=== PATIENT | female | born 1990 | race Caucasian/White ===

== ENCOUNTER → 2017-05-22 | Outpatient (CLI) | payer OTHER ==
--- NOTE | 2017-05-22 17:31 | Diagnostic Imaging Report ---
US NON OB PELVIS COMP/TRANSVAG Technique: Transabdominal and transvaginal grayscale, color Doppler and pulse duplex imaging of the pelvis was performed. Indication: Abnormal uterine bleeding. Findings: The uterus measures 6.2 x 4.7 x 3.2 cm. The myometrium is normal in echogenicity without discrete mass. The endometrium measures up to 1.0 cm where visualized, and is normal in echogenicity. The right ovary measures 2.3 x 2.0 x 2.9 cm. The left ovary measures 3.0 x 2.0 x 2.3 cm. Both ovaries are physiologic in appearance. Blood flow is seen in both ovaries on color doppler imaging. No suspicious adnexal mass or fluid collection. No free pelvic fluid. Impression: Normal pelvic ultrasound. Dictated by: Dictated on workstation # [id number]
== END ==
LOC: RAD 16:49
PROVIDERS: ATTEND Obstetrics & Gynecology
DX: N93.9 Abnormal uterine and vaginal bleeding, unspecified (principal)
CPT/HCPCS: 76830; 76856

== ENCOUNTER → 2017-08-03 | Outpatient (CLI) | payer OTHER, MEDICAID ==
--- NOTE | 2017-08-03 17:37 | Diagnostic Imaging Report ---
PROCEDURE: US OB single fetus <14 wks. TECHNIQUE: Multiple real-time grayscale images were obtained over the gravid uterus in various projections. INDICATION: Size and dates. FINDINGS: There is a single living intrauterine . Biometry correlates with a gestational age of 9 weeks 2 days. Heart rate is 167 beats per minute and regular. There is a normal volume of amniotic fluid. Placental location appears to be anterior. Neither ovary was visualized due to bowel gas. There are no adnexal masses. There is no free pelvic fluid. IMPRESSION: Single living intrauterine with a sonographically estimated gestational age of 9 weeks 2 days and estimated date of confinement March 06, 2018. Dictated by: Dictated on workstation # [id number]
== END ==
LOC: RAD 16:51
PROVIDERS: ATTEND Family Medicine
DX: Z34.00 Encounter for supervision of normal first pregnancy, unspecified trimester (principal); Z3A.09 9 weeks gestation of pregnancy
CPT/HCPCS: 76801

== ENCOUNTER → 2017-10-23 | Outpatient (CLI) | payer OTHER, MEDICAID ==
--- NOTE | 2017-10-23 17:59 | Diagnostic Imaging Report ---
INDICATION: survey, patient. TECHNIQUE: Multiple real-time grayscale images were obtained over the gravid uterus. COMPARISON: 08/03/2017. FINDINGS: A single live intrauterine fetus is seen measuring 22 weeks 3 days with sonographic EDC of 02/23/2018. This is about a week and a half larger than expected from original dates. The fetus is in cephalic presentation. The amniotic fluid appears qualitatively normal. Placenta is posterior with no evidence of previa. The heart rate was 167 beats per minute. Cervical length is 4.7 cm. survey showed no detectable abnormalities. kidneys, bladder, stomach, and three-vessel cord were noted. Cord insertion was noted to be normal. The intracranial structures and four-chamber heart view and spine views were suboptimal due to position. Biometrical measurements are as follows: Biparietal 5.48 cm, age 22 weeks 5 days. Head circumference 20.13 cm, age 22 weeks 2 days. Abdominal circumference 17.22 cm, age 22 weeks 2 days. Femur length 3.76 cm, age 22 weeks 1 days. Sonographic estimate age: 22 weeks 3 days. Sonographic estimated date of delivery: 02/23/2018. Estimated Weight: 479 gm (+/- 70 gm). LMP percentile: 97%. heart rate: 167 beats per minute. number: 1 of 1. IMPRESSION: Single live intrauterine fetus measuring 22 weeks 3 days in size; this is about a week and a half larger than expected from original dates but may be within variation. Followup is recommended. survey showed no detectable abnormalities, although portions of the anatomy including intracranial structures and four-chamber heart view and spine were not well seen due to position. Consider limited followup as clinically warranted. Dictated by: Dictated on workstation # [id number]
== END ==
LOC: RAD 15:38
PROVIDERS: ATTEND Family Medicine
DX: Z36.89 Encounter for other specified antenatal screening (principal); Z3A.22 22 weeks gestation of pregnancy
CPT/HCPCS: 76805

== ENCOUNTER 2018-02-25 21:03 | Inpatient (IN) | payer OTHER, MEDICAID ==
[2018-02-25] VITALS (8 sets, daily range): BP systolic 110–131; BP diastolic 65–83
[~2018-02-25] VITALS: Ht 167.6 cm; Wt 134.3 kg
[2018-02-25] MEDS ORDERED: OXYTOCIN/NORMAL SALINE 500 ML IV ONE (21:36)
[2018-02-25] MEDS ORDERED: D5 LR IV SOLUTION 1,000 ML IV ONE (21:36)
--- OUTSIDE RECORDS SUMMARY | 2018-02-25 21:39 | XMS REPORT ---
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 Phone CHELSEA YODER Unavailable PROBLEMS Type Condition ICD9-CM Code [id number] Code Onset Dates Condition Status SNOMED Code Problem Morbid (severe) obesity due to excess calories E66.01 Active 688758553 Problem Female hypertestosteronemia E34.9 Active 526101421 Problem Obesity affecting in third trimester O99.213 Active 614968977333 Problem Obesity affecting in second trimester O99.212 Active 882412795491 Problem Irregular menstrual cycle N92.6 Active 66542927 Problem Body mass index (BMI) of 40.0-44.9 in adult Z68.41 Active 368789997 Problem Gastro-esophageal reflux disease without esophagitis K21.9 Active 977927383 Problem History of hypothyroidism Z86.39 Active 596920609 ALLERGIES No Information ENCOUNTERS Encounter Location Date Diagnosis [place] [id number] [place] [id number] [place] [address]35- 4884 23 Feb, 2018 [place] [id number] [place] [address] 74939- 9242 16 Feb, 2018 Third trimester Z34.93 ; 38 weeks gestation of Z3A.38 and Obesity affecting in third trimester O99.213 [facility] [id number] [place] [address] 45222- 9168 15 Feb, 2018 [place] [address] [address]- 89[address] 09 Feb, 2018 37 weeks gestation of Z3A.37 ; Third trimester Z34.93 and BMI 45.0-49.9, adult Z68.42 [place] [address] 65[address]- 8826 Feb, Gastro-esophageal reflux disease without esophagitis K21.9 ; Third trimester Z34.93 ; 36 weeks gestation of Z3A.36 and Obesity affecting in third trimester O99.213 [place] [id number] [place] [address] 56734- 8842 Jan, [place] [id number] [place] [address] 22428- 6739 Jan, Third trimester Z34.93 ; 35 weeks gestation of Z3A.35 and Encounter for immunization Z23 [place] [id number] [place] [address] 47615- 1767 Jan, 33 weeks gestation of Z3A.33 ; Third trimester Z34.93 and Obesity affecting in third trimester O99.213 [place] [id number] [place] [address] 94365- 2036 Dec, care in third trimester Z34.93 ; 31 weeks gestation of Z3A.31 ; Encounter for immunization Z23 and Obesity affecting in third trimester O99.213 [place] [id number] [place] [address] 18464- 5368 Dec, Third trimester Z34.93 ; 29 weeks gestation of Z3A.29 ; Dizziness R42 ; Elevated blood pressure affecting , antepartum O16.9 and Obesity affecting in third trimester O99.213 [place] [id number] [place] [address] 53434- 2638 Nov, BMI 45.0-49.9, adult Z68.42 ; Second trimester Z34.92 ; 26 weeks gestation of Z3A.26 and Obesity affecting in second trimester O99.212 [place] [id number] [place] [address] 34335- 0814 Oct, Low back pain M54.5 ; Second trimester Z34.92 ; 21 weeks gestation of Z3A.21 ; BMI 45.0-49.9, adult Z68.42 and Obesity affecting in second trimester O99.212 [place] [id number] [place] [address] 80725- 4480 September, Second trimester Z34.92 ; 17 weeks gestation of Z3A.17 ; Gastro-esophageal reflux disease without esophagitis K21.9 and Diseases of the digestive system complicating , second trimester O99.612 [place] [id number] [place] [address] 53168- 6930 Aug, BMI 40.0-44.9, adult Z68.41 ; Second trimester Z34.92 and 12 weeks gestation of Z3A.12 [place] [address] 28571- 1694 Aug, Elevated TSH R94.6 and Normal , first Z34.00 [place] [id number] [place] [address] 00314- 0215 Aug, Normal , first Z34.00 [place] [address] 85973- 4042 Aug, Elevated TSH R94.6 [place] [id number] [place] [address] 33986- 4083 Jul, First trimester Z34.90 ; Normal , first Z34.00 ; 10 weeks gestation of Z3A.10 and History of hypothyroidism Z86.39 [place] [id number] [place] [address] 96762- 4539 Jun, [place] [address] 79173- 3080 Jun, test positive Z32.01 [place] [address] 93999- 7924 Apr, [place] [address] 32905- 9764 Apr, Female hypertestosteronemia E34.[address] 35048- 7671 Mar, Morbid (severe) obesity due to excess calories E66.01 and Irregular menstrual cycle N92.6 [place] [address] 49298- 9883 Mar, Desire for Z31.9 ; Irregular menstrual cycle N92.6 ; Morbid (severe) obesity due to excess calories E66.01 ; Body mass index (BMI) of 40.0-44.9 in adult Z68.41 and BMI 40.0-44.9, adult Z68.41 [place] [id number] [place] [address] 99104- 1267 Apr, Sore throat J02.9 and Strep throat J02.0 [place] [address] 46750- 8211 Jul, Hand, foot and mouth disease B08.[address] 05596- 9483 May, Missed period N92.6 ; Dysuria R30.0 and Acute cystitis without hematuria N30.00 [place] [address] 03574- 0050 Nov, [place] [address] 91000- 5427 Nov, Absence of menstruation 626.0 [place] [address] 13412- 7643 September, Generalized headaches 784.0 [place] [id number] [place] [address] 03192- 3179 Aug, [place] [address] 73490- 2180 Aug, [place] [address] 36127- 5334 September, [place] [address] 15471- 0568 September, [facility] [place] [facility] [address] [id number] [place] [address]- 7183 September, [facility] [place] [facility] [address] [id number] [place] [address]- 5864 September, [facility] [place] [facility] [address] [id number] [place] [address]- 1456 Jun, [facility] [place] [facility] [address] [id number] [place] [address]- 5470 Jun, [facility] [place] [facility] [address] [id number] [place] [address]- 9013 Jun, [facility] [place] [facility] [address] [id number] [place] [address]- 7657 Jun, [facility] [place] [facility] [address] [id number] [place] [address]- 7497 Jun, [facility] [place] [facility] [address] [id number] [place] [address]- 1463 May, [facility] [place] [facility] [address] [id number] [place] [address]- 0085 May, [facility] [place] [facility] [address] [id number] [place] [address]- 6485 May, [facility] [place] [facility] [address] [id number] [place] [address]- 6351 May, [facility] [place] [facility] [address] [id number] [place] [address]- 8662 May, [facility] [place] [facility] [address] [id number] [place] [address]- 1448 Feb, [facility] [place] [facility] [address] [id number] [place] [address]- 7864 Feb, [facility] [place] [facility] [address] [id number] [place] [address]- 7823 Nov, [facility] [place] [facility] [address] [facility] [id number] [place] [address]- 9556 Nov, [facility] [address] [facility] [id number] [address]- 2440 Oct, [facility] [address] [facility] [id number][place] [address]- 2833 Jul, [facility] [address] [facility] [id number], [place] [address]- 4970 Jul, [facility] [address] [facility] [id number] [address]- 3590 Jul, IMMUNIZATIONS No Known Immunizations SOCIAL HISTORY Never Assessed REASON FOR VISIT OB 1wk f/u, urine ob dip -- isaias borrero PLAN OF CARE Activity Details Follow Up 1 Week Reason: Pending Test UA OB DIP (IN HOUSE) VITAL SIGNS Height 66 in 2018-02-20 Weight 292.0 lbs 2018-02-20 Temperature 97.6 degrees Fahrenheit 2018-02-20 BMI 47.13 kg/m2 2018-02-20 Blood pressure systolic 124 mmHg 2018-02-20 Blood pressure diastolic 78 mmHg 2018-02-20 MEDICATIONS Medication Instructions Dosage Frequency Start Date End Date Duration Status Zantac 150 MG Orally twice a day 1 tablet 12h Feb, 30 day(s) Not-Taking Complete 14-0.4 MG Active RESULTS No Results PROCEDURES Procedure Date Ordered Result Body Site URINE-NO MICRO Feb 20, 2018 INSTRUCTIONS MEDICATIONS ADMINISTERED No Known Medications MEDICAL (GENERAL) HISTORY Type Description Date Medical History IBS Surgical History No know Surgical history
--- OUTSIDE RECORDS SUMMARY | 2018-02-25 21:40 | XMS REPORT ---
Author Author CHELSEA YODER Organization 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 Phone CHELSEA YODER Unavailable PROBLEMS Type Condition ICD9-CM Code WHJ06-FC Code Onset Dates Condition Status SNOMED Code Problem Morbid (severe) obesity due to excess calories E66.01 Active 621483081 Problem Female hypertestosteronemia E34.9 Active 219369879 Problem Obesity affecting in third trimester O99.213 Active 397536283710 Problem Obesity affecting in second trimester O99.212 Active 732945555572 Problem Irregular menstrual cycle N92.6 Active 99821457 Problem Body mass index (BMI) of 40.0-44.9 in adult Z68.41 Active 054773806 Problem Gastro-esophageal reflux disease without esophagitis K21.9 Active 013989176 Problem History of hypothyroidism Z86.39 Active 235322688 ALLERGIES No Information ENCOUNTERS Encounter Location Date Diagnosis [place] [address] [address]- [address] 23 Feb, 2018 [place] [id number] [place] [address] 31295- 9057 Feb, [place] [id number] [place] [address] 49467- 3696 Feb, 37 weeks gestation of Z3A.37 ; Third trimester Z34.93 and BMI 45.0-49.9, adult Z68.42 [place] [address] 33076- 9017 02 Feb, 2018 Gastro-esophageal reflux disease without esophagitis K21.9 ; Third trimester Z34.93 ; 36 weeks gestation of Z3A.36 and Obesity affecting in third trimester O99.213 [place] [address] [place] [address]- 5718 Jan, [place] [id number] [place] [address] 78937- 5159 Jan, Third trimester Z34.93 ; 35 weeks gestation of Z3A.35 and Encounter for immunization Z23 [place] [address] 24816- 5526 Jan, 33 weeks gestation of Z3A.33 ; Third trimester Z34.93 and Obesity affecting in third trimester O99.213 [place] [address] 45843- 7290 Dec, care in third trimester Z34.93 ; 31 weeks gestation of Z3A.31 ; Encounter for immunization Z23 and Obesity affecting in third trimester O99.213 [place] [address] 49771- 7141 Dec, Third trimester Z34.93 ; 29 weeks gestation of Z3A.29 ; Dizziness R42 ; Elevated blood pressure affecting , antepartum O16.9 and Obesity affecting in third trimester O99.213 [place] [id number] [place] [address] 63590- 3289 Nov, BMI 45.0-49.9, adult Z68.42 ; Second trimester Z34.92 ; 26 weeks gestation of Z3A.26 and Obesity affecting in second trimester O99.212 [place] [id number] [place] [address] 16300- 2539 Oct, Low back pain M54.5 ; Second trimester Z34.92 ; 21 weeks gestation of Z3A.21 ; BMI 45.0-49.9, adult Z68.42 and Obesity affecting in second trimester O99.212 [place] [address] [place] [address] 75134- 1923 September, Second trimester Z34.92 ; 17 weeks gestation of Z3A.17 ; Gastro-esophageal reflux disease without esophagitis K21.9 and Diseases of the digestive system complicating , second trimester O99.612 [place] [address] 26853- 9485 Aug, BMI 40.0-44.9, adult Z68.41 ; Second trimester Z34.92 and 12 weeks gestation of Z3A.12 [place] [address] 91352- 0513 Aug, Elevated TSH R94.6 and Normal , first Z34.00 [place] [address] 19880- 1567 Aug, Normal , first Z34.00 [place] [address] 99502- 9815 Aug, Elevated TSH R94.6 [place] [address] 70080- 6121 Jul, First trimester Z34.90 ; Normal , first Z34.00 ; 10 weeks gestation of Z3A.10 and History of hypothyroidism Z86.39 [place] [address] 41563- 1106 Jun, [place] [address] 47980- 4862 Jun, test positive Z32.01 [place] [address] 00336- 0764 Apr, [place] [address] 07715- 3339 Apr, Female hypertestosteronemia E34.9 [place] [address] 48956- 1584 Mar, Morbid (severe) obesity due to excess calories E66.01 and Irregular menstrual cycle N92.6 [place] [address] 16900- 7396 Mar, Desire for Z31.9 ; Irregular menstrual cycle N92.6 ; Morbid (severe) obesity due to excess calories E66.01 ; Body mass index (BMI) of 40.0-44.9 in adult Z68.41 and BMI 40.0-44.9, adult Z68.41 [facility] [id number] [place] [address] 38848- 5018 Apr, Sore throat J02.9 and Strep throat J02.0 [facility] [address] 98129- 1948 Jul, Hand, foot and mouth disease B08.4 [place] [address] 71488- 1544 May, Missed period N92.6 ; Dysuria R30.0 and Acute cystitis without hematuria N30.00 [place] [address] 62075- 6114 Nov, [facility] [address] 00270- 9704 Nov, Absence of menstruation 626.0 [place] [address] 90344- 8953 September, Generalized headaches 784.0 [facility] [id number] [place] [address] 39312- 1357 Aug, [facility] [id number] [place] [address] 85431- 8336 Aug, [facility] [id number] [place] [address] 24723- 6773 September, [facility] [address] [address]115- 5150 September, [facility] [id number] [place] [address] 37579- 7923 September, [facility] [address] 67587- 2546 September, [facility] [address] [id number] [place] [address]- 9511 Jun, [facility] [place] [facility] [address] [id number] [place] [address]- 1106 Jun, [facility] [place] [facility] [address] [id number] [place] [address]- 1176 Jun, [facility] [place] [facility] [address] [id number] [place] [address]- 1169 Jun, [facility] [place] [facility] [address] [id number] [place] [address]- 1931 Jun, [facility] [place] [facility] [address] [id number] [place] [address]- 8784 May, [facility] [place] [facility] [address] [id number] [place] [address]- 3069 May, [facility] [place] [facility] [address] [id number] [place] [address]- 2202 May, [facility] [place] [facility] [address] [id number] [place] [address]- 8969 May, [facility] [place] [facility] [address] [facility] [id number] [place] [address]- 2924 May, [facility] [place] [facility] [address] [id number] [place] [address]- 3591 Feb, [facility] [place] [facility] [address] [id number] [place] [address]- 8401 Feb, [facility] [place] [facility] [address] [id number] [place] [address]- 7278 Nov, [facility] [place] [facility] [address] [id number] [place] [address]- 2408 Nov, [facility] [place] [facility] [address] [facility] [id number] [place] [address]- 8262 Oct, [facility] [place] [facility] [address] [facility] [id number] [place] [address]- 0715 Jul, [facility] [address] [facility] [id number], [place] [address]- 9075 Jul, [facility] [address] [facility] [id number], [place] [address]- 6136 Jul, IMMUNIZATIONS No Known Immunizations SOCIAL HISTORY Never Assessed REASON FOR VISIT OB 1wk f/u, ob dip, cervix check-awoods PLAN OF CARE Activity Details Follow Up 1 Week Reason: VITAL SIGNS Height 66 in 2018-02-13 Weight 290.8 lbs 2018-02-13 Temperature 98.1 degrees Fahrenheit 2018-02-13 Heart Rate 120 bpm 2018-02-13 Respiratory Rate 22 2018-02-13 BMI 46.936 kg/m2 2018-02-13 Blood pressure systolic 104 mmHg 2018-02-13 Blood pressure diastolic 74 mmHg 2018-02-13 MEDICATIONS Medication Instructions Dosage Frequency Start Date End Date Duration Status Complete 14-0.4 MG Active Zantac 150 MG Orally twice a day 1 tablet 12h Feb, 30 day(s) Not-Taking RESULTS Name Result Date Reference Range UA OB DIP (IN HOUSE) 2018-02-13 Glucose neg Protein trace PROCEDURES Procedure Date Ordered Result Body Site URINE-NO MICRO Feb 13, 2018 INSTRUCTIONS MEDICATIONS ADMINISTERED No Known Medications MEDICAL (GENERAL) HISTORY Type Description Date Medical History IBS Surgical History No know Surgical history
--- OUTSIDE RECORDS SUMMARY | 2018-02-25 21:40 | XMS REPORT ---
Author Author CHELSEA YODER Organization [facility] Address [address] [place] [address] Care Team Providers Care Sports Medicine Physician Name Role Phone CHELSEA YODER Unavailable PROBLEMS Type Condition ICD9-CM Code ZAU41-GN Code Onset Dates Condition Status SNOMED Code Problem Morbid (severe) obesity due to excess calories E66.01 Active 082514162 Problem Female hypertestosteronemia E34.9 Active 407893685 Problem Obesity affecting in third trimester O99.213 Active 433135610912 Problem Obesity affecting in second trimester O99.212 Active 025490720010 Problem Irregular menstrual cycle N92.6 Active 67763850 Problem Body mass index (BMI) of 40.0-44.9 in adult Z68.41 Active 218959158 Problem Gastro-esophageal reflux disease without esophagitis K21.9 Active 461104373 Problem History of hypothyroidism Z86.39 Active 806254036 ALLERGIES No Information ENCOUNTERS Encounter Location Date Diagnosis [place] [address] [address] 23 Feb, 2018 [place] [address] [place] [id number] [place] [address]2325- 7419 Feb, [place] [address] [place] [id number] [place] [address] 40938- 2063 Feb, 37 weeks gestation of Z3A.37 ; Third trimester Z34.93 and BMI 45.0-49.9, adult Z68.42 [place] [address] [address]- [address] 02 Feb, 2018 Gastro-esophageal reflux disease without esophagitis K21.9 ; Third trimester Z34.93 ; 36 weeks gestation of Z3A.36 and Obesity affecting in third trimester O99.213 [place] [address] [place] [address] Jan, [place] [address] [place] [id number] [place] [address] 91339- 6305 Jan, Third trimester Z34.93 ; 35 weeks gestation of Z3A.35 and Encounter for immunization Z23 [place] [address] [address]- [address] Jan, 33 weeks gestation of Z3A.33 ; Third trimester Z34.93 and Obesity affecting in third trimester O99.213 [place] [address] [address]- 8216 Dec, care in third trimester Z34.93 ; 31 weeks gestation of Z3A.31 ; Encounter for immunization Z23 and Obesity affecting in third trimester O99.213 [place] [address] 16295- 2262 Dec, Third trimester Z34.93 ; 29 weeks gestation of Z3A.29 ; Dizziness R42 ; Elevated blood pressure affecting , antepartum O16.9 and Obesity affecting in third trimester O99.213 [place] [address] [place] [id number] [place] [address]95- 6510 Nov, BMI 45.0-49.9, adult Z68.42 ; Second trimester Z34.92 ; 26 weeks gestation of Z3A.26 and Obesity affecting in second trimester O99.212 [place] [address] [place] [id number] [place] [address] 24751- 4828 Oct, Low back pain M54.5 ; Second trimester Z34.92 ; 21 weeks gestation of Z3A.21 ; BMI 45.0-49.9, adult Z68.42 and Obesity affecting in second trimester O99.212 [place] [address] [place] [id number] [place] [address] 53485- 2144 September, Second trimester Z34.92 ; 17 weeks gestation of Z3A.17 ; Gastro-esophageal reflux disease without esophagitis K21.9 and Diseases of the digestive system complicating , second trimester O99.612 [place] [address] [address]- 4065 Aug, BMI 40.0-44.9, adult Z68.41 ; Second trimester Z34.92 and 12 weeks gestation of Z3A.12 [place] [address] 01689- 1383 Aug, Elevated TSH R94.6 and Normal , first Z34.00 [place] [address] 62316- 1192 Aug, Normal , first Z34.00 [place] [address] 28529- 8753 Aug, Elevated TSH R94.6 [place] [address] 70757- 5719 Jul, First trimester Z34.90 ; Normal , first Z34.00 ; 10 weeks gestation of Z3A.10 and History of hypothyroidism Z86.39 [place] [address] 70877- 6697 Jun, [place] [address] 55981- 8323 Jun, test positive Z32.01 [place] [address] 82644- 3483 Apr, [place] [address] [address]60- 1945 Apr, Female hypertestosteronemia E34.9 [place] [address] 62833- 5554 Mar, Morbid (severe) obesity due to excess calories E66.01 and Irregular menstrual cycle N92.6 [place] [address] 53740- 2327 Mar, Desire for Z31.9 ; Irregular menstrual cycle N92.6 ; Morbid (severe) obesity due to excess calories E66.01 ; Body mass index (BMI) of 40.0-44.9 in adult Z68.41 and BMI 40.0-44.9, adult Z68.41 [facility] [address] [place] [id number] [place] [address] 12240- 0544 Apr, Sore throat J02.9 and Strep throat J02.0 [facility] [address] 9[address]75- 8272 Jul, Hand, foot and mouth disease B08.4 [place] [address] 14532- 8904 May, Missed period N92.6 ; Dysuria R30.0 and Acute cystitis without hematuria N30.00 [place] [address] 11704- 6247 Nov, [facility] [address] 11324- 4616 Nov, Absence of menstruation 626.0 [place] [address] 59156- 0604 September, Generalized headaches 784.0 [facility] [address] [place] [id number] [place] [address] 17552- 2853 Aug, [facility] [address] [place] [id number] [place] [address] 80220- 6123 Aug, [facility] [address] [place] [id number] [place] [address] 37071- 8835 September, [facility] [address] 85765- 8968 September, [facility] [address] [place] [id number] [place] [address] 95200- 4532 September, [facility] [address] 21577- 2546 September, [facility] [address] [id number] [place] [address]- 1077 Jun, [facility] [place] [facility] [address] [id number] [place] [address]- 0526 Jun, [facility] [place] [facility] [address] [id number] [place] [address]- 9006 Jun, [facility] [place] [facility] [address] [id number] [place] [address]- 9024 Jun, [facility] [place] [facility] [address] [id number] [place] [address]- 2605 Jun, [facility] [place] [facility] [address] [id number] [place] [address]- 4956 May, [facility] [place] [facility] [address] [id number] [place] [address]- 0871 May, [facility] [place] [facility] [address] [id number] [place] [address]- 4794 May, [facility] [place] [facility] [address] [id number] [place] [address]- 6234 May, [facility] [place] [facility] [address] [facility] [id number] [place] [address]- 2823 May, [facility] [place] [facility] [address] [id number] [place] [address]- 3194 Feb, [facility] [place] [facility] [address] [id number] [place] [address]- 8860 Feb, [facility] [place] [facility] [address] [id number] [place] [address]- 3767 Nov, [facility] [place] [facility] [address] [id number] [place] [address]- 5287 Nov, [facility] [place] [facility] [address] [facility] [id number] [place] [address]- 7330 Oct, [facility] [place] [facility] [address] [facility] [id number] [place] [address]- 8253 Jul, [facility] [address] [facility] [id number], [place] [address]- [address]876 Jul, [facility] [address] [facility] [id number] [place] [address]- 4655 Jul, IMMUNIZATIONS Vaccine Route Administration Date Status FLULAVAL QUAD 0.5ML (6 MO & UP) 2018 IM Intramuscular Jan 30, 2018 Administered SOCIAL HISTORY Never Assessed REASON FOR VISIT OB 2wk f/u -- isaias borrero PLAN OF CARE Activity Details Follow Up 1 Week Reason: VITAL SIGNS Height 66 in 2018-01-30 Weight 290.0 lbs 2018-01-30 Temperature 98.0 degrees Fahrenheit 2018-01-30 Heart Rate 90 bpm 2018-01-30 Respiratory Rate 22 2018-01-30 BMI 46.807 kg/m2 2018-01-30 Blood pressure systolic 124 mmHg 2018-01-30 Blood pressure diastolic 80 mmHg 2018-01-30 MEDICATIONS Medication Instructions Dosage Frequency Start Date End Date Duration Status Complete 14-0.4 MG Active Blood Pressure Monitor Automat - as directed Dec, Active RESULTS Name Result Date Reference Range UA OB DIP (IN HOUSE) 2018-01-30 Glucose negative Protein trace PROCEDURES Procedure Date Ordered Result Body Site URINE-NO MICRO Jan 30, 2018 FLULAVAL QUAD 0.5ML (6 MO AND UP) 2018 Jan 30, 2018 SINGLE IMMUNIZATION ADMIN Jan 30, 2018 INSTRUCTIONS MEDICATIONS ADMINISTERED No Known Medications MEDICAL (GENERAL) HISTORY Type Description Date Medical History IBS Surgical History No know Surgical history
--- OUTSIDE RECORDS SUMMARY | 2018-02-25 21:40 | XMS REPORT ---
Author Author CHELSEA YODER Organization [facility] Address [address] [place] [address] Care Team Providers Care Fire Extinguisher Sprinkler Inspector Name Role Phone CHELSEA YODER Unavailable PROBLEMS Type Condition ICD9-CM Code [id number] Code Onset Dates Condition Status SNOMED Code Problem Morbid (severe) obesity due to excess calories E66.01 Active 122851769 Problem Female hypertestosteronemia E34.9 Active 318772548 Problem Obesity affecting in third trimester O99.213 Active 000631806274 Problem Obesity affecting in second trimester O99.212 Active 327386018433 Problem Irregular menstrual cycle N92.6 Active 02570340 Problem Body mass index (BMI) of 40.0-44.9 in adult Z68.41 Active 480246137 Problem Gastro-esophageal reflux disease without esophagitis K21.9 Active 759600138 Problem History of hypothyroidism Z86.39 Active 889555834 ALLERGIES No Information ENCOUNTERS Encounter Location Date Diagnosis [place] [address] [address]- [address] 23 Feb, 2018 [place] [address] [place] [id number] [place] [address] 26187- 8806 Feb, [place] [address] [place] [id number] [place] [address] 73731- 2217 Feb, 37 weeks gestation of Z3A.37 ; Third trimester Z34.93 and BMI 45.0-49.9, adult Z68.42 [place] [address] 78902- 5082 02 Feb, 2018 Gastro-esophageal reflux disease without esophagitis K21.9 ; Third trimester Z34.93 ; 36 weeks gestation of Z3A.36 and Obesity affecting in third trimester O99.213 [place] [address] [place] [address]- 7904 Jan, [place] [address] [place] [id number] [place] [address] 62869- 6005 Jan, Third trimester Z34.93 ; 35 weeks gestation of Z3A.35 and Encounter for immunization Z23 [place] [address] 93199- 8752 Jan, 33 weeks gestation of Z3A.33 ; Third trimester Z34.93 and Obesity affecting in third trimester O99.213 [place] [address] 79186- 2848 Dec, care in third trimester Z34.93 ; 31 weeks gestation of Z3A.31 ; Encounter for immunization Z23 and Obesity affecting in third trimester O99.213 [place] [address] 96598- 2197 Dec, Third trimester Z34.93 ; 29 weeks gestation of Z3A.29 ; Dizziness R42 ; Elevated blood pressure affecting , antepartum O16.9 and Obesity affecting in third trimester O99.213 [place] [address] [place] [id number] [place] [address] 79079- 1678 Nov, BMI 45.0-49.9, adult Z68.42 ; Second trimester Z34.92 ; 26 weeks gestation of Z3A.26 and Obesity affecting in second trimester O99.212 [place] [address] [place] [id number] [place] [address] 50739- 5559 Oct, Low back pain M54.5 ; Second trimester Z34.92 ; 21 weeks gestation of Z3A.21 ; BMI 45.0-49.9, adult Z68.42 and Obesity affecting in second trimester O99.212 [place] [address] [place] [id number] [place] [address] 72072- 4067 September, Second trimester Z34.92 ; 17 weeks gestation of Z3A.17 ; Gastro-esophageal reflux disease without esophagitis K21.9 and Diseases of the digestive system complicating , second trimester O99.612 [place] [address] 28453- 6424 Aug, BMI 40.0-44.9, adult Z68.41 ; Second trimester Z34.92 and 12 weeks gestation of Z3A.12 [place] [address] 40321- 5012 Aug, Elevated TSH R94.6 and Normal , first Z34.00 [place] [address] 89223- 8057 Aug, Normal , first Z34.00 [place] [address] 62336- 8201 Aug, Elevated TSH R94.6 [place] [address] 67979- 4192 Jul, First trimester Z34.90 ; Normal , first Z34.00 ; 10 weeks gestation of Z3A.10 and History of hypothyroidism Z86.39 [place] [address] 08894- 1893 Jun, [place] [address] 98799- 8051 Jun, test positive Z32.01 [place] [address] 19171- 5015 Apr, [place] [address] 32779- 7387 Apr, Female hypertestosteronemia E34.9 [place] [address] 14004- 9338 Mar, Morbid (severe) obesity due to excess calories E66.01 and Irregular menstrual cycle N92.6 [place] [address] 93814- 1288 Mar, Desire for Z31.9 ; Irregular menstrual cycle N92.6 ; Morbid (severe) obesity due to excess calories E66.01 ; Body mass index (BMI) of 40.0-44.9 in adult Z68.41 and BMI 40.0-44.9, adult Z68.41 [facility] [address] [place] [id number] [place] [address] 60029- 5044 Apr, Sore throat J02.9 and Strep throat J02.0 [facility] [address] 05383- 2315 Jul, Hand, foot and mouth disease B08.4 [place] [address] 43341- 5712 May, Missed period N92.6 ; Dysuria R30.0 and Acute cystitis without hematuria N30.00 [place] [address] 61590- 3998 Nov, [facility] [address] 70188- 4945 Nov, Absence of menstruation 626.0 [place] [address] 92109- 3875 September, Generalized headaches 784.0 [facility] [address] [place] [id number] [place] [address] 61907- 0808 Aug, [facility] [address] [place] [id number] [place] [address] 89234- 4140 Aug, [facility] [address] [place] [id number] [place] [address] 19504- 4814 September, [facility] [address] 57205- 9214 September, [facility] [address] [place] [id number] [place] [address] 50101- 5463 September, [facility] [address] 68652- 2546 September, [facility] [address] [id number] [place] [address]- 0132 Jun, [facility] [place] [facility] [address] [id number] [place] [address]- 1996 Jun, [facility] [place] [facility] [address] [id number] [place] [address]- 5486 Jun, [facility] [place] [facility] [address] [id number] [place] [address]- 3051 Jun, [facility] [place] [facility] [address] [id number] [place] [address]- 4344 Jun, [facility] [place] [facility] [address] [id number] [place] [address]- 4467 May, [facility] [place] [facility] [address] [id number] [place] [address]- 9527 May, [facility] [place] [facility] [address] [id number] [place] [address]- 3736 May, [facility] [place] [facility] [address] [id number] [place] [address]- 3040 May, [facility] [place] [facility] [address] [facility] [id number] [place] [address]- 0916 May, [facility] [place] [facility] [address] [id number] [place] [address]- 1611 Feb, [facility] [place] [facility] [address] [id number] [place] [address]- 1595 Feb, [facility] [place] [facility] [address] [id number] [place] [address]- 8832 Nov, [facility] [place] [facility] [address] [id number] [place] [address]- 1302 Nov, [facility] [place] [facility] [address] [facility] [id number] [place] [address]- 4391 Oct, [facility] [place] [facility] [address] [facility] [id number] [place] [address]- 7131 Jul, [facility] [address] [facility] [id number], [place] [address]- 7331 Jul, [facility] [address] [facility] [id number] [place] [address]- 8391 Jul, IMMUNIZATIONS Vaccine Route Administration Date Status TDAP (BOOSTRIX) IM Intramuscular Jan 02, 2018 Administered SOCIAL HISTORY Never Assessed REASON FOR VISIT OB 2wk f/u -- isaias borrero PLAN OF CARE Activity Details Follow Up 2 Weeks Reason: VITAL SIGNS Height 66 in 2018-01-02 Weight 288.2 lbs 2018-01-02 Temperature 98.7 degrees Fahrenheit 2018-01-02 Heart Rate 100 bpm 2018-01-02 Respiratory Rate 22 2018-01-02 BMI 46.517 kg/m2 2018-01-02 Blood pressure systolic 120 mmHg 2018-01-02 Blood pressure diastolic 70 mmHg 2018-01-02 MEDICATIONS Medication Instructions Dosage Frequency Start Date End Date Duration Status Levothyroxine Sodium 25 MCG Orally Once a day 1 tablet on an empty stomach in the morning 24h Not-Taking Blood Pressure Monitor Automat - as directed Dec, Active Complete 14-0.4 MG Active Ranitidine HCl 150 MG Orally Once a day 1 capsule at bedtime 24h September, 30 day(s) Not-Taking RESULTS Name Result Date Reference Range UA OB DIP (IN HOUSE) 2018-01-02 Glucose negatibve Protein trace PROCEDURES Procedure Date Ordered Result Body Site URINE-NO MICRO Jan 02, 2018 TDAP (BOOSTRIX) Jan 02, 2018 SINGLE IMMUNIZATION ADMIN Jan 02, 2018 INSTRUCTIONS MEDICATIONS ADMINISTERED No Known Medications MEDICAL (GENERAL) HISTORY Type Description Date Medical History IBS Surgical History No know Surgical history
--- OUTSIDE RECORDS SUMMARY | 2018-02-25 21:40 | XMS REPORT ---
Author Author CHELSEA YODER Organization [facility] Address [address] [place] [address] Care Team Providers Care Special Agent Name Role Phone CHELSEA YODER Unavailable PROBLEMS Type Condition ICD9-CM Code WNP17-ZM Code Onset Dates Condition Status SNOMED Code Problem Morbid (severe) obesity due to excess calories E66.01 Active 222689817 Problem Female hypertestosteronemia E34.9 Active 956818509 Problem Obesity affecting in third trimester O99.213 Active 318266670120 Problem Obesity affecting in second trimester O99.212 Active 848209706894 Problem Irregular menstrual cycle N92.6 Active 71971407 Problem Body mass index (BMI) of 40.0-44.9 in adult Z68.41 Active 156248460 Problem Gastro-esophageal reflux disease without esophagitis K21.9 Active 460295978 Problem History of hypothyroidism Z86.39 Active 776750058 ALLERGIES No Information ENCOUNTERS Encounter Location Date Diagnosis [place] [address] [address] 23 Feb, 2018 [place] [address] [place] [id number] [place] [address]- 1789 Feb, [place] [address] [place] [id number] [place] [address] 28055- 4739 Feb, 37 weeks gestation of Z3A.37 ; Third trimester Z34.93 and BMI 45.0-49.9, adult Z68.42 [place] [address] [address] 02 Feb, 2018 Gastro-esophageal reflux disease without esophagitis K21.9 ; Third trimester Z34.93 ; 36 weeks gestation of Z3A.36 and Obesity affecting in third trimester O99.213 [place] [address] [place] [address] Jan, [place] [address] [place] [id number] [place] [address] 9[address]43- 8403 Jan, Third trimester Z34.93 ; 35 weeks gestation of Z3A.35 and Encounter for immunization Z23 [place] [address] [address]- [address] Jan, 33 weeks gestation of Z3A.33 ; Third trimester Z34.93 and Obesity affecting in third trimester O99.213 [place] [address] [address]- [address] Dec, care in third trimester Z34.93 ; 31 weeks gestation of Z3A.31 ; Encounter for immunization Z23 and Obesity affecting in third trimester O99.213 [place] [address] [address]- 4[address] Dec, Third trimester Z34.93 ; 29 weeks gestation of Z3A.29 ; Dizziness R42 ; Elevated blood pressure affecting , antepartum O16.9 and Obesity affecting in third trimester O99.213 [place] [address] [place] [id number] [place] [address]- 1961 Nov, BMI 45.0-49.9, adult Z68.42 ; Second trimester Z34.92 ; 26 weeks gestation of Z3A.26 and Obesity affecting in second trimester O99.212 [place] [address] [place] [id number] [place] [address] 29228- 6446 Oct, Low back pain M54.5 ; Second trimester Z34.92 ; 21 weeks gestation of Z3A.21 ; BMI 45.0-49.9, adult Z68.42 and Obesity affecting in second trimester O99.212 [place] [address] [place] [id number] [place] [address] 95516- 0291 September, Second trimester Z34.92 ; 17 weeks gestation of Z3A.17 ; Gastro-esophageal reflux disease without esophagitis K21.9 and Diseases of the digestive system complicating , second trimester O99.612 [place] [address] 6[address]- 8960 Aug, BMI 40.0-44.9, adult Z68.41 ; Second trimester Z34.92 and 12 weeks gestation of Z3A.12 [place] [address] 66871- 3577 Aug, Elevated TSH R94.6 and Normal , first Z34.00 [place] [address] [address]80- 7622 Aug, Normal , first Z34.00 [place] [address] 0[address]- 8671 Aug, Elevated TSH R94.6 [place] [address] [address]10- 2556 Jul, First trimester Z34.90 ; Normal , first Z34.00 ; 10 weeks gestation of Z3A.10 and History of hypothyroidism Z86.39 [place] [address] [address]- 64[address] Jun, [place] [address] 20965- 1774 Jun, test positive Z32.01 [place] [address] [address]- 7080 Apr, [place] [address] 13673- 6[address] Apr, Female hypertestosteronemia E34.9 [place] [address] 49[address]- 2139 Mar, Morbid (severe) obesity due to excess calories E66.01 and Irregular menstrual cycle N92.6 [place] [address] 48993- 6385 Mar, Desire for Z31.9 ; Irregular menstrual cycle N92.6 ; Morbid (severe) obesity due to excess calories E66.01 ; Body mass index (BMI) of 40.0-44.9 in adult Z68.41 and BMI 40.0-44.9, adult Z68.41 [facility] [address] [place] [id number] [place] [address] 84732- 7058 Apr, Sore throat J02.9 and Strep throat J02.0 [facility] [address] [address]- 7[address] Jul, Hand, foot and mouth disease B08.4 [place] [address] 55517- 6045 May, Missed period N92.6 ; Dysuria R30.0 and Acute cystitis without hematuria N30.00 [place] [address] [address]- [address]65 Nov, [facility] [address] 39689- 7745 Nov, Absence of menstruation 626.0 [place] [address] 08695- 1339 September, Generalized headaches 784.0 [facility] [address] [place] [id number] [place] [address] 64988- 1201 Aug, [facility] [address] [place] [id number] [place] [address]- 3023 Aug, [facility] [address] [place] [id number] [place] [address]- 7116 September, [facility] [address] [address]- [address] September, [facility] [address] [place] [id number] [place] [address]10- 7384 September, [facility] [address] 9[address]- 2546 September, [facility] [address] [id number] [place] [address]- 3687 Jun, [facility] [place] [facility] [address] [id number] [place] [address]- 3786 Jun, [facility] [place] [facility] [address] [id number] [place] [address]- 8086 Jun, [facility] [place] [facility] [address] [id number] [place] [address]- 2829 Jun, [facility] [place] [facility] [address] [id number] [place] [address]- 0732 Jun, [facility] [place] [facility] [address] [id number] [place] [address]- 9453 May, [facility] [place] [facility] [address] [id number] [place] [address]- 6296 May, [facility] [place] [facility] [address] [id number] [place] [address]- 8775 May, [facility] [place] [facility] [address] [id number] [place] [address]- 8920 May, [facility] [place] [facility] [address] [facility] [id number] [place] [address]- 0427 May, [facility] [place] [facility] [address] [id number] [place] [address]- 8553 Feb, [facility] [place] [facility] [address] [id number] [place] [address]- 3468 Feb, [facility] [place] [facility] [address] [id number] [place] [address]- 2272 Nov, [facility] [place] [facility] [address] [id number] [place] [address]- 3642 Nov, [facility] [place] [facility] [address] [facility] [id number] [place] [address]- 6769 Oct, [facility] [place] [facility] [address] [facility] [id number] [place] [address] Jul, [facility] [address] [facility] [id number] [address] Jul, [facility] [address] [facility] [id number] [place] [address]- 1737 Jul, IMMUNIZATIONS No Known Immunizations SOCIAL HISTORY Never Assessed REASON FOR VISIT OB 2wk f/u -- isaias borrero, swealling on hands and feet PLAN OF CARE Activity Details Follow Up 2 Weeks Reason: VITAL SIGNS Height 66 in 2018-01-16 Weight 288.9 lbs 2018-01-16 Temperature 97.8 degrees Fahrenheit 2018-01-16 Heart Rate 112 bpm 2018-01-16 Respiratory Rate 22 2018-01-16 Oximetry 97 % 2018-01-16 BMI 46.63 kg/m2 2018-01-16 Blood pressure systolic 130 mmHg 2018-01-16 Blood pressure diastolic 80 mmHg 2018-01-16 MEDICATIONS Medication Instructions Dosage Frequency Start Date End Date Duration Status Levothyroxine Sodium 25 MCG Orally Once a day 1 tablet on an empty stomach in the morning 24h Unknown Blood Pressure Monitor Automat - as directed Dec, Unknown Complete 14-0.4 MG Unknown Ranitidine HCl 150 MG Orally Once a day 1 capsule at bedtime 24h September, 30 day(s) Unknown RESULTS Name Result Date Reference Range UA OB DIP (IN HOUSE) 2018-01-16 Glucose neg Protein trace PROCEDURES Procedure Date Ordered Result Body Site URINE-NO MICRO Jan 16, 2018 INSTRUCTIONS MEDICATIONS ADMINISTERED No Known Medications MEDICAL (GENERAL) HISTORY Type Description Date Medical History IBS Surgical History No know Surgical history
--- OUTSIDE RECORDS SUMMARY | 2018-02-25 21:40 | XMS REPORT ---
Author Author CHELSEA YODER Organization [facility] Address [address] [place] [address] Care Team Providers Care Floor Surfacer Name Role Phone CHELSEA YOEDR Unavailable PROBLEMS Type Condition ICD9-CM Code QXY86-BF Code Onset Dates Condition Status SNOMED Code Problem Morbid (severe) obesity due to excess calories E66.01 Active 846488853 Problem Female hypertestosteronemia E34.9 Active 285532038 Problem Obesity affecting in third trimester O99.213 Active 788107787797 Problem Obesity affecting in second trimester O99.212 Active 832141341946 Problem Irregular menstrual cycle N92.6 Active 41086606 Problem Body mass index (BMI) of 40.0-44.9 in adult Z68.41 Active 665725748 Problem Gastro-esophageal reflux disease without esophagitis K21.9 Active 232541205 Problem History of hypothyroidism Z86.39 Active 744058902 ALLERGIES No Information ENCOUNTERS Encounter Location Date Diagnosis [place] [address] [address] 23 Feb, 2018 [place] [address] [place] [id number] [place] [address] 03341- 0108 Feb, [place] [address] [place] [id number] [place] [address]28- 2989 Feb, 37 weeks gestation of Z3A.37 ; Third trimester Z34.93 and BMI 45.0-49.9, adult Z68.42 [place] [address] [address]- [address] 02 Feb, 2018 Gastro-esophageal reflux disease without esophagitis K21.9 ; Third trimester Z34.93 ; 36 weeks gestation of Z3A.36 and Obesity affecting in third trimester O99.213 [place] [address] [place] [address]- 8694 Jan, [place] [address] [place] [id number] [place] [address] 24383- 2538 Jan, Third trimester Z34.93 ; 35 weeks gestation of Z3A.35 and Encounter for immunization Z23 [place] [address] [address]- 4196 Jan, 33 weeks gestation of Z3A.33 ; Third trimester Z34.93 and Obesity affecting in third trimester O99.213 [place] [address] 10[address]- 0219 Dec, care in third trimester Z34.93 ; 31 weeks gestation of Z3A.31 ; Encounter for immunization Z23 and Obesity affecting in third trimester O99.213 [place] [address] [address]- 3331 Dec, Third trimester Z34.93 ; 29 weeks gestation of Z3A.29 ; Dizziness R42 ; Elevated blood pressure affecting , antepartum O16.9 and Obesity affecting in third trimester O99.213 [place] [address] [place] [id number] [place] [address] 65547- 1337 Nov, BMI 45.0-49.9, adult Z68.42 ; Second trimester Z34.92 ; 26 weeks gestation of Z3A.26 and Obesity affecting in second trimester O99.212 [place] [address] [place] [id number] [place] [address] 93924- 7389 Oct, Low back pain M54.5 ; Second trimester Z34.92 ; 21 weeks gestation of Z3A.21 ; BMI 45.0-49.9, adult Z68.42 and Obesity affecting in second trimester O99.212 [place] [address] [place] [id number] [place] [address] 92681- 9616 September, Second trimester Z34.92 ; 17 weeks gestation of Z3A.17 ; Gastro-esophageal reflux disease without esophagitis K21.9 and Diseases of the digestive system complicating , second trimester O99.612 [place] [address] 9[address]88- 5937 Aug, BMI 40.0-44.9, adult Z68.41 ; Second trimester Z34.92 and 12 weeks gestation of Z3A.12 [place] [address] 64014- 0515 Aug, Elevated TSH R94.6 and Normal , first Z34.00 [place] [address] 58279- 8276 Aug, Normal , first Z34.00 [place] [address] 75670- 6754 Aug, Elevated TSH R94.6 [place] [address] 44007- 4784 Jul, First trimester Z34.90 ; Normal , first Z34.00 ; 10 weeks gestation of Z3A.10 and History of hypothyroidism Z86.39 [place] [address] 85751- 3099 Jun, [place] [address] 50822- 9908 Jun, test positive Z32.01 [place] [address] 18242- 9303 Apr, [place] [address] 78618- 6789 Apr, Female hypertestosteronemia E34.9 [place] [address] [address]00- 2155 Mar, Morbid (severe) obesity due to excess calories E66.01 and Irregular menstrual cycle N92.6 [place] [address] 69574- 8344 Mar, Desire for Z31.9 ; Irregular menstrual cycle N92.6 ; Morbid (severe) obesity due to excess calories E66.01 ; Body mass index (BMI) of 40.0-44.9 in adult Z68.41 and BMI 40.0-44.9, adult Z68.41 [facility] [address] [place] [id number] [place] [address] 03980- 9902 Apr, Sore throat J02.9 and Strep throat J02.0 [facility] [address] 52360- 0649 Jul, Hand, foot and mouth disease B08.4 [place] [address] 10333- 3195 May, Missed period N92.6 ; Dysuria R30.0 and Acute cystitis without hematuria N30.00 [place] [address] 54572- 5520 Nov, [facility] [address] 47187- 3660 Nov, Absence of menstruation 626.0 [place] [address] 03397- 0440 September, Generalized headaches 784.0 [facility] [address] [place] [id number] [place] [address] 22389- 1882 Aug, [facility] [address] [place] [id number] [place] [address] 62842- 0950 Aug, [facility] [address] [place] [id number] [place] [address] 19949- 6458 September, [facility] [address] 48397- 8192 September, [facility] [address] [place] [id number] [place] [address] 42890- 0825 September, [facility] [address] 37444- 2546 September, [facility] [address] [id number] [place] [address]- 9707 Jun, [facility] [place] [facility] [address] [id number] [place] [address]- 8566 Jun, [facility] [place] [facility] [address] [id number] [place] [address]- 8556 Jun, [facility] [place] [facility] [address] [id number] [place] [address]- 8146 Jun, [facility] [place] [facility] [address] [id number] [place] [address]- 8176 Jun, [facility] [place] [facility] [address] [id number] [place] [address]- 2273 May, [facility] [place] [facility] [address] [id number] [place] [address]- 7363 May, [facility] [place] [facility] [address] [id number] [place] [address]- 2437 May, [facility] [place] [facility] [address] [id number] [place] [address]- 4534 May, [facility] [place] [facility] [address] [facility] [id number] [place] [address]- 2988 May, [facility] [place] [facility] [address] [id number] [place] [address]- 8664 Feb, [facility] [place] [facility] [address] [id number] [place] [address]- 8944 Feb, [facility] [place] [facility] [address] [id number] [place] [address]- 0360 Nov, [facility] [place] [facility] [address] [id number] [place] [address]- 9222 Nov, [facility] [place] [facility] [address] [facility] [id number] [place] [address]- 6767 Oct, [facility] [place] [facility] [address] [facility] [id number] [place] [address]- 5837 Jul, [facility] [address] [facility] [id number] [place] [address]- 0653 Jul, [facility] [address] [facility] [id number] [place] [address]- 0328 Jul, IMMUNIZATIONS No Known Immunizations SOCIAL HISTORY Never Assessed REASON FOR VISIT OB 3wk f/u -- isaias borrero PLAN OF CARE Activity Details Follow Up 2 Weeks Reason: VITAL SIGNS Height 66 in 2017-12-20 Weight 282.0 lbs 2017-12-20 Temperature 98.0 degrees Fahrenheit 2017-12-20 BMI 45.516 kg/m2 2017-12-20 Blood pressure systolic 122 mmHg 2017-12-20 Blood pressure diastolic 78 mmHg 2017-12-20 MEDICATIONS Medication Instructions Dosage Frequency Start Date End Date Duration Status Blood Pressure Monitor Automat - as directed Dec, Active Complete 14-0.4 MG Active Ranitidine HCl 150 MG Orally Once a day 1 capsule at bedtime 24h September, 30 day(s) Not-Taking Levothyroxine Sodium 25 MCG Orally Once a day 1 tablet on an empty stomach in the morning 24h Not-Taking RESULTS No Results PROCEDURES Procedure Date Ordered Result Body Site URINE-NO MICRO Dec 20, 2017 COMPLETE CBC W/AUTO DIFF WBC Dec 20, 2017 VENIPUNCT, ROUTINE* Dec 20, 2017 GLUCOSE TEST Dec 20, 2017 INSTRUCTIONS MEDICATIONS ADMINISTERED No Known Medications MEDICAL (GENERAL) HISTORY Type Description Date Medical History IBS Surgical History No know Surgical history
--- OUTSIDE RECORDS SUMMARY | 2018-02-25 21:41 | XMS REPORT ---
Author Author CHELSEA YODER Organization [facility] Address [address] [place] [address] Care Team Providers Care Exhauster Name Role Phone CHELSEA YODER Unavailable PROBLEMS Type Condition ICD9-CM Code UEC69-GS Code Onset Dates Condition Status SNOMED Code Problem Morbid (severe) obesity due to excess calories E66.01 Active 542630786 Problem Female hypertestosteronemia E34.9 Active 823108680 Problem Obesity affecting in third trimester O99.213 Active 806402882471 Problem Obesity affecting in second trimester O99.212 Active 267539143406 Problem Irregular menstrual cycle N92.6 Active 39708305 Problem Body mass index (BMI) of 40.0-44.9 in adult Z68.41 Active 487070689 Problem Gastro-esophageal reflux disease without esophagitis K21.9 Active 412064041 Problem History of hypothyroidism Z86.39 Active 276595149 ALLERGIES No Information ENCOUNTERS Encounter Location Date Diagnosis [facility] [id number] [place] [address] 96732- 7956 Feb, [facility] [id number] [place] [address] 91022- 4641 Feb, [facility] [id number] [place] [address] 48478- 8485 Feb, [facility] [id number] [place] [address] 21206- 5105 Feb, Gastro-esophageal reflux disease without esophagitis K21.9 ; Third trimester Z34.93 ; 36 weeks gestation of Z3A.36 and Obesity affecting in third trimester O99.213 [facility] [id number] [place] [address] 37310- 5772 Jan, [facility] [address] [place] [address]- 0383 Jan, Third trimester Z34.93 ; 35 weeks gestation of Z3A.35 and Encounter for immunization Z23 [address] 57[address]- 6118 Jan, 33 weeks gestation of Z3A.33 ; Third trimester Z34.93 and Obesity affecting in third trimester O99.[address] 39857- 6158 Dec, care in third trimester Z34.93 ; 31 weeks gestation of Z3A.31 ; Encounter for immunization Z23 and Obesity affecting in third trimester O99.[address] 90216- 0706 Dec, Third trimester Z34.93 ; 29 weeks gestation of Z3A.29 ; Dizziness R42 ; Elevated blood pressure affecting , antepartum O16.9 and Obesity affecting in third trimester O99.[address] 05377- 0962 Nov, BMI 45.0-49.9, adult Z68.42 ; Second trimester Z34.92 ; 26 weeks gestation of Z3A.26 and Obesity affecting in second trimester O99.[address] 33929- 5477 Oct, Low back pain M54.5 ; Second trimester Z34.92 ; 21 weeks gestation of Z3A.21 ; BMI 45.0-49.9, adult Z68.42 and Obesity affecting in second trimester O99.[address] 79750- 0853 September, Second trimester Z34.92 ; 17 weeks gestation of Z3A.17 ; Gastro-esophageal reflux disease without esophagitis K21.9 and Diseases of the digestive system complicating , second trimester O99.[address] 39585- 7306 Aug, BMI 40.0-44.9, adult Z68.41 ; Second trimester Z34.92 and 12 weeks gestation of Z3A.12 [place] [address] 71187- 9847 Aug, Elevated TSH R94.6 and Normal , first Z34.00 [place] [address] 93243- 7712 Aug, Normal , first Z34.00 [place] [address] 44734- 2344 Aug, Elevated TSH R94.6 [place] [address] 44069- 5946 Jul, First trimester Z34.90 ; Normal , first Z34.00 ; 10 weeks gestation of Z3A.10 and History of hypothyroidism Z86.39 [place] [id number] [place] [address] 05846- 8818 Jun, [place] [address] 16355- 1861 Jun, test positive Z32.01 [place] [address] 86131- 6747 Apr, [place] [address] 97577- 9466 Apr, Female hypertestosteronemia E34.9 [place] [id number] [place] [address] 35512- 2066 Mar, Morbid (severe) obesity due to excess calories E66.01 and Irregular menstrual cycle N92.6 [place] [id number] [place] [address] 87479- 0302 Mar, Desire for Z31.9 ; Irregular menstrual cycle N92.6 ; Morbid (severe) obesity due to excess calories E66.01 ; Body mass index (BMI) of 40.0-44.9 in adult Z68.41 and BMI 40.0-44.9, adult Z68.41 [facility] [id number] [place] [address] 37619- 0247 Apr, Sore throat J02.9 and Strep throat J02.0 [facility] [id number] [place] [address] 38706- 7475 Jul, Hand, foot and mouth disease B08.4 [facility] [id number] [place] [address] 87122- 2142 May, Missed period N92.6 ; Dysuria R30.0 and Acute cystitis without hematuria N30.00 [facility] [id number] [place] [address] 52243- 2439 Nov, [facility] [address] 79163- 8045 Nov, Absence of menstruation 626.0 [facility] [id number] [place] [address] 25773- 0993 September, Generalized headaches 784.0 [facility] [id number] [place] [address] 27409- 0923 Aug, [facility] [id number] [place] [address] 90544- 9454 Aug, [facility] [id number] [place] [address] 04233- 7858 September, [facility] [id number] [place] [address] 87588- 2564 September, [facility] [id number] [place] [address] 88002- 5957 September, [facility] [id number] [place] [address] 63333- 1160 September, [facility] [address] 05973- 2546 Jun, [facility] [address] [id number] [place] 7957 Jun, [facility] [place] [facility] [address] [id number] [place] [address]- 5591 Jun, [facility] [place] [facility] [address] [id number] [place] [address]- 1376 Jun, [facility] [place] [facility] [address] [id number] [place] [address]- 8506 Jun, [facility] [place] [facility] [address] [id number] [place] [address]- 6268 May, [facility] [place] [facility] [address] [id number] [place] [address]- 0437 May, [facility] [address] [id number] [place] [address]- 9060 May, [facility] [place] [facility] [address] [id number] [place] [address]- 4493 May, [facility] [place] [facility] [address] [id number] [place] [address]- 2355 May, [facility] [place] [facility] [address] [facility] [id number] [place] [address]- 3807 Feb, [facility] [place] [facility] [address] [id number] [place] [address]- 4652 Feb, [facility] [place] [facility] [address] [id number] [place] [address]- 6802 Nov, [facility] [place] [facility] [address] [id number] [place] [address]- 7529 Nov, [facility] [place] [facility] [address] [id number] [place] [address]- 7238 Oct, [facility] [place] [facility] [address] [facility] [id number] [place] [address]- 5059 Jul, [facility] [place] [facility] [address] [facility] [id number] [place] [address]65 Jul, [facility] [address] [facility] [id number] [place] [address] [address]10 Jul, IMMUNIZATIONS No Known Immunizations SOCIAL HISTORY Never Assessed REASON FOR VISIT PLAN OF CARE VITAL SIGNS MEDICATIONS Unknown Medications RESULTS No Results PROCEDURES No Known procedures INSTRUCTIONS MEDICATIONS ADMINISTERED No Known Medications MEDICAL (GENERAL) HISTORY Type Description Date Medical History IBS Surgical History No know Surgical history
--- OUTSIDE RECORDS SUMMARY | 2018-02-25 21:41 | XMS REPORT ---
Author Author CHELSEA YODER [facility] Address [address] [place] [address] Care Team Providers Care Press Washer Name Role Phone CHELSEA YODER Unavailable PROBLEMS Type Condition ICD9-CM Code TQM11-AP Code Onset Dates Condition Status SNOMED Code Problem Female hypertestosteronemia E34.9 Active 484561250 Problem Obesity affecting in second trimester O99.212 Active 121418015371 Problem Gastro-esophageal reflux disease without esophagitis K21.9 Active 617577332 Problem Body mass index (BMI) of 40.0-44.9 in adult Z68.41 Active 145340198 Problem Morbid (severe) obesity due to excess calories E66.01 Active 041207600 Problem History of hypothyroidism Z86.39 Active 690825052 Problem Irregular menstrual cycle N92.6 Active 19924821 ALLERGIES No Known Allergies ENCOUNTERS Encounter Location Date Diagnosis [place] [id number] [place] [address] 89850- 0252 Feb, [facility] [id number] [place] [address] 55012- 9886 Feb, [place] [id number] [place] [address] 93654- 3723 Feb, [facility] [id number] [place] [address] 85587- 1021 Feb, [facility] [id number] [place] [address] 29695- 2355 Jan, [place] [id number] [place] [address] 01880- 6682 Jan, 33 weeks gestation of Z3A.33 and Third trimester Z34.93 [facility] [address] 86664- 9099 Dec, care in third trimester Z34.93 ; 31 weeks gestation of Z3A.31 and Encounter for immunization Z23 [place] [id number] [place] [address] 54633- 8362 Dec, Third trimester Z34.93 ; 29 weeks gestation of Z3A.29 ; Dizziness R42 and Elevated blood pressure affecting , antepartum O16.9 [place] [address] 75319- 4366 Nov, BMI 45.0-49.9, adult Z68.42 ; Second trimester Z34.92 ; 26 weeks gestation of Z3A.26 and Obesity affecting in second trimester O99.212 [place] [id number] [place] [address] 36254- 9547 Oct, Low back pain M54.5 ; Second trimester Z34.92 ; 21 weeks gestation of Z3A.21 ; BMI 45.0-49.9, adult Z68.42 and Obesity affecting in second trimester O99.212 [place] [id number] [place] [address] 08008- 3924 September, Second trimester Z34.92 ; 17 weeks gestation of Z3A.17 ; Gastro-esophageal reflux disease without esophagitis K21.9 and Diseases of the digestive system complicating , second trimester O99.612 [place] [id number] [place] [address] 62479- 3224 Aug, BMI 40.0-44.9, adult Z68.41 ; Second trimester Z34.92 and 12 weeks gestation of Z3A.12 [place] [id number] [place] [address] 37701- 4152 Aug, Elevated TSH R94.6 and Normal , first Z34.00 [place] [id number] [place] [address] 44822- 4294 Aug, Normal , first Z34.00 [facility] [place] [id number] [place] [address] 18045- 0428 Aug, Elevated TSH R94.[address] 43053- 1234 Jul, First trimester Z34.90 ; Normal , first Z34.00 ; 10 weeks gestation of Z3A.10 and History of hypothyroidism Z86.[address] 84889- 4462 Jun, [address] 16690- 1225 Jun, test positive Z32.[address] 68055- 8578 Apr, [address] 41202- 4579 Apr, Female hypertestosteronemia E34.9 [place] [id number] [place] [address] 41945- 5784 Mar, Morbid (severe) obesity due to excess calories E66.01 and Irregular menstrual cycle N92.[address] 53421- 7578 Mar, Desire for Z31.9 ; Irregular menstrual cycle N92.6 ; Morbid (severe) obesity due to excess calories E66.01 ; Body mass index (BMI) of 40.0-44.9 in adult Z68.41 and BMI 40.0-44.9, adult Z68.41 [place] [id number] [place] [address] 66317- 6113 Apr, Sore throat J02.9 and Strep throat J02.0 [place] [id number] [place] [address] 71283- 5834 Jul, Hand, foot and mouth disease B08.[address] 74894- 2545 May, Missed period N92.6 ; Dysuria R30.0 and Acute cystitis without hematuria N30.00 [facility] [id number] [place] [address] 03822- 2965 Nov, [facility] [id number] [place] [address] 71582- 1107 Nov, Absence of menstruation 626.0 [facility] [id number] [place] [address] 66069- 7441 September, Generalized headaches 784.0 [facility] [id number] [place] [address] 10528- 4887 Aug, [facility] [id number] [place] [address] 47351- 3098 Aug, [facility] [id number] [place] [address] 49927- 8228 September, [facility] [id number] [place] [address] 22799- 3267 September, [facility] [id number] [place] [address] 42018- 5647 September, [facility] [id number] [place] [address] 26502- 3424 September, [facility] [id number] [place] [address] 57462- 2085 Jun, [facility] [id number] [place] [address] 64233- 5160 Jun, [facility] [id number] [place] [address] 55592- 9729 Jun, [facility] [id number] [place] [address] 07336- 3617 Jun, [facility] [id number] [place] [address] 49084- 3710 Jun, [facility] [id number] [address]- 2149 May, [facility] [id number] [address]- 4666 May, [facility] [id number] [address]- 5456 May, [facility] [id number] [place] [address]- 4432 May, [facility] [id number] [address]- 4171 May, [facility] [address] [place] [address]- 9816 Feb, [facility] [id number] [place] [address]- 4596 Feb, [facility] [id number] [place] [address]- 7450 Nov, [facility] [id number] [address]- 6160 Nov, [facility] [id number] [address]- 6858 Oct, [facility] [id number] [address]- 6263 Jul, [facility] [id number] [address]- 9386 Jul, [facility] [id number] [address]- 7066 Jul, IMMUNIZATIONS No Known Immunizations SOCIAL HISTORY Never Assessed REASON FOR VISIT OB 4wk f/u-AHarrymkyleRN PLAN OF CARE Activity Details Follow Up 4 Weeks Reason: VITAL SIGNS Height 66 in 2017-11-30 Weight 283.7 lbs 2017-11-30 Temperature 97.8 degrees Fahrenheit 2017-11-30 Heart Rate 104 bpm 2017-11-30 Respiratory Rate 18 2017-11-30 BMI 45.79 kg/m2 2017-11-30 Blood pressure systolic 108 mmHg 2017-11-30 Blood pressure diastolic 74 mmHg 2017-11-30 MEDICATIONS Medication Instructions Dosage Frequency Start Date End Date Duration Status Ranitidine HCl 150 MG Orally Once a day 1 capsule at bedtime 24h September, 30 day(s) Not-Taking Levothyroxine Sodium 25 MCG Orally Once a day 1 tablet on an empty stomach in the morning 24h Not-Taking Complete 14-0.4 MG Active RESULTS Name Result Date Reference Range UA OB DIP (IN HOUSE) 2017-11-30 Glucose Negative Protein 1+ PROCEDURES Procedure Date Ordered Result Body Site URINE-NO MICRO November 30, 2017 INSTRUCTIONS MEDICATIONS ADMINISTERED No Known Medications MEDICAL (GENERAL) HISTORY Type Description Date Medical History IBS
--- OUTSIDE RECORDS SUMMARY | 2018-02-25 21:41 | XMS REPORT ---
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 Name Role Phone CHELSEA YODER Unavailable PROBLEMS Type Condition ICD9-CM Code SMB10-IJ Code Onset Dates Condition Status SNOMED Code Problem Female hypertestosteronemia E34.9 Active 756690564 Problem Obesity affecting in second trimester O99.212 Active 539088615281 Problem Gastro-esophageal reflux disease without esophagitis K21.9 Active 048625722 Problem Body mass index (BMI) of 40.0-44.9 in adult Z68.41 Active 461955040 Problem Morbid (severe) obesity due to excess calories E66.01 Active 831089299 Problem History of hypothyroidism Z86.39 Active 701181451 Problem Irregular menstrual cycle N92.6 Active 89618466 ALLERGIES No Known Allergies ENCOUNTERS Encounter Location Date Diagnosis [place] [id number] [place] [address] 51328- 1792 Feb, [facility] [id number] [place] [address] 39159- 0640 Feb, [place] [id number] [place] [address] 35976- 4049 Feb, [facility] [id number] [place] [address] 85311- 0788 Feb, [facility] [id number] [place] [address] 07855- 6087 Jan, [place] [id number] [place] [address] 80594- 2766 Jan, 33 weeks gestation of Z3A.33 and Third trimester Z34.93 [facility] [address] 03449- 5723 Dec, care in third trimester Z34.93 ; 31 weeks gestation of Z3A.31 and Encounter for immunization Z23 [place] [id number] [place] [address] 39994- 2070 Dec, Third trimester Z34.93 ; 29 weeks gestation of Z3A.29 ; Dizziness R42 and Elevated blood pressure affecting , antepartum O16.9 [place] [address] 14272- 9733 Nov, BMI 45.0-49.9, adult Z68.42 ; Second trimester Z34.92 ; 26 weeks gestation of Z3A.26 and Obesity affecting in second trimester O99.212 [place] [id number] [place] [address] 14704- 5618 Oct, Low back pain M54.5 ; Second trimester Z34.92 ; 21 weeks gestation of Z3A.21 ; BMI 45.0-49.9, adult Z68.42 and Obesity affecting in second trimester O99.212 [place] [id number] [place] [address] 09328- 3720 September, Second trimester Z34.92 ; 17 weeks gestation of Z3A.17 ; Gastro-esophageal reflux disease without esophagitis K21.9 and Diseases of the digestive system complicating , second trimester O99.612 [place] [address] [place] [address] 56681- 0075 Aug, BMI 40.0-44.9, adult Z68.41 ; Second trimester Z34.92 and 12 weeks gestation of Z3A.12 [place] [id number] [place] [address] 55827- 4449 Aug, Elevated TSH R94.6 and Normal , first Z34.00 [place] [address] [place] [address] 43781- 5230 Aug, Normal , first Z34.00 [facility] [place] [facility] [place] [id number] [place] [address] 00019- 8331 Aug, Elevated TSH R94.[address] 55715- 5926 Jul, First trimester Z34.90 ; Normal , first Z34.00 ; 10 weeks gestation of Z3A.10 and History of hypothyroidism Z86.[address] 56780- 4770 Jun, [address] 62507- 5207 Jun, test positive Z32.[address] 30924- 5274 Apr, [address] 61898- 7868 Apr, Female hypertestosteronemia E34.9 [place] [id number] [place] [address] 57913- 2973 Mar, Morbid (severe) obesity due to excess calories E66.01 and Irregular menstrual cycle N92.[address] 17722- 2916 Mar, Desire for Z31.9 ; Irregular menstrual cycle N92.6 ; Morbid (severe) obesity due to excess calories E66.01 ; Body mass index (BMI) of 40.0-44.9 in adult Z68.41 and BMI 40.0-44.9, adult Z68.41 [place] [id number] [place] [address] 74266- 6715 Apr, Sore throat J02.9 and Strep throat J02.0 [place] [id number] [place] [address] 67462- 7565 Jul, Hand, foot and mouth disease B08.[address] 05829- 3289 May, Missed period N92.6 ; Dysuria R30.0 and Acute cystitis without hematuria N30.00 [facility] [id number] [place] [address] 01892- 1035 Nov, [facility] [id number] [place] [address] 01552- 4581 Nov, Absence of menstruation 626.0 [facility] [id number] [place] [address] 62889- 8313 September, Generalized headaches 784.0 [facility] [id number] [place] [address] 37814- 3903 Aug, [facility] [id number] [place] [address] 73631- 4791 Aug, [facility] [id number] [place] [address] 72886- 9590 September, [facility] [id number] [place] [address] 32209- 7644 September, [facility] [id number] [place] [address] 39101- 0016 September, [facility] [id number] [place] [address] 51695- 3420 September, [facility] [address] [place] [address] 36875- 9212 Jun, [facility] [id number] [place] [address] 36672- 7311 Jun, [facility] [address] [place] [address] 53168- 9459 Jun, [facility] [id number] [place] [address] 20160- 5405 Jun, [facility] [address] [place] [address] 28076- 0056 Jun, [facility] [id number] [address]- 1126 May, [facility] [address] [address]- 9372 May, [facility] [id number] [address]- 6643 May, [facility] [address] [address]- 8820 May, [facility] [address] [facility] [id number] [address]- 7584 May, [facility] [address] [address]- 2085 Feb, [facility] [address] [address]- 9234 Feb, [facility] [address] [place] [address]- 5071 Nov, [facility] [address] [address]- 0899 Nov, [facility] [address] [address]- 0849 Oct, [facility] [id number] [address]- 4948 Jul, [facility] [id number] [address]- 0906 Jul, [facility] [id number] [address]- 6578 Jul, IMMUNIZATIONS No Known Immunizations SOCIAL HISTORY Never Assessed REASON FOR VISIT OB 4wk f/u Pt c/o lower back pain and hip pain recently PLAN OF CARE Activity Details Follow Up 4 Weeks Reason: VITAL SIGNS Height 66 in 2017-10-25 Weight 279.4 lbs 2017-10-25 Temperature 98.3 degrees Fahrenheit 2017-10-25 Heart Rate 102 bpm 2017-10-25 Respiratory Rate 18 2017-10-25 BMI 45.096 kg/m2 2017-10-25 Blood pressure systolic 112 mmHg 2017-10-25 Blood pressure diastolic 60 mmHg 2017-10-25 MEDICATIONS Medication Instructions Dosage Frequency Start Date End Date Duration Status Levothyroxine Sodium 25 MCG Orally Once a day 1 tablet on an empty stomach in the morning 24h Active Complete 14-0.4 MG Active Ranitidine HCl 150 MG Orally Once a day 1 capsule at bedtime 24h September, 30 day(s) Not-Taking RESULTS Name Result Date Reference Range UA LONG DIP (IN HOUSE) 2017-10-25 Lot # [id number] Exp date 09/04/2018 Clarity clear Color yellow Odor none GLU negative INDU negative KET negative SG >=1.030 BLO tr-intact pH 6.5 Protein negative URO 0.2 NIT negative SARA 1+ Lot # [id number] Exp date 04/2018 PROCEDURES Procedure Date Ordered Result Body Site URINALYSIS, AUTO, W/O SCOPE October 25, 2017 INSTRUCTIONS MEDICATIONS ADMINISTERED No Known Medications MEDICAL (GENERAL) HISTORY Type Description Date Medical History IBS
--- OUTSIDE RECORDS SUMMARY | 2018-02-25 21:41 | XMS REPORT ---
Author Author CHELSEA YODER Organization 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 Name Role Phone CHELSEA YODER Unavailable PROBLEMS Type Condition ICD9-CM Code HCV47-FD Code Onset Dates Condition Status SNOMED Code Problem Morbid (severe) obesity due to excess calories E66.01 Active 599598997 Problem Female hypertestosteronemia E34.9 Active 928420803 Problem Obesity affecting in third trimester O99.213 Active 392807917110 Problem Obesity affecting in second trimester O99.212 Active 101025684899 Problem Irregular menstrual cycle N92.6 Active 78238127 Problem Body mass index (BMI) of 40.0-44.9 in adult Z68.41 Active 907526528 Problem Gastro-esophageal reflux disease without esophagitis K21.9 Active 646846584 Problem History of hypothyroidism Z86.39 Active 603211208 ALLERGIES No Known Allergies ENCOUNTERS Encounter Location Date Diagnosis [place] [address] 75996- 7234 23 Feb, 2018 [place] [address] 78187- 3696 Feb, [place] [address] 54749- 6637 Feb, 37 weeks gestation of Z3A.37 ; Third trimester Z34.93 and BMI 45.0-49.9, adult Z68.42 [place] [address] 99359- 1437 02 Feb, 2018 Gastro-esophageal reflux disease without esophagitis K21.9 ; Third trimester Z34.93 ; 36 weeks gestation of Z3A.36 and Obesity affecting in third trimester O99.213 [place] [address] [place] [address]- 6774 28 Jan, 2018 [place] [address] [place] [id number] [place] [address] 09052- 3473 Jan, Third trimester Z34.93 ; 35 weeks gestation of Z3A.35 and Encounter for immunization Z23 [place] [address] [id number] [place] [address] 94861- 9015 Jan, 33 weeks gestation of Z3A.33 ; Third trimester Z34.93 and Obesity affecting in third trimester O99.213 [place] [address] 12825- 4159 Dec, care in third trimester Z34.93 ; 31 weeks gestation of Z3A.31 ; Encounter for immunization Z23 and Obesity affecting in third trimester O99.213 [place] [id number] [place] [address] 78703- 1835 Dec, Third trimester Z34.93 ; 29 weeks gestation of Z3A.29 ; Dizziness R42 ; Elevated blood pressure affecting , antepartum O16.9 and Obesity affecting in third trimester O99.213 [place] [address] [place] [address] 50042- 1357 Nov, BMI 45.0-49.9, adult Z68.42 ; Second trimester Z34.92 ; 26 weeks gestation of Z3A.26 and Obesity affecting in second trimester O99.212 [place] [id number] [place] [address] 41923- 7192 Oct, Low back pain M54.5 ; Second trimester Z34.92 ; 21 weeks gestation of Z3A.21 ; BMI 45.0-49.9, adult Z68.42 and Obesity affecting in second trimester O99.212 [place] [id number] [place] [address] 52390- 9937 September, Second trimester Z34.92 ; 17 weeks gestation of Z3A.17 ; Gastro-esophageal reflux disease without esophagitis K21.9 and Diseases of the digestive system complicating , second trimester O99.612 [place] [address] 14614- 0556 Aug, BMI 40.0-44.9, adult Z68.41 ; Second trimester Z34.92 and 12 weeks gestation of Z3A.12 [place] [address] 13860- 0766 Aug, Elevated TSH R94.6 and Normal , first Z34.00 [place] [address] 27905- 2490 Aug, Normal , first Z34.00 [place] [address] 35758- 7686 Aug, Elevated TSH R94.6 [place] [address] 79051- 2697 Jul, First trimester Z34.90 ; Normal , first Z34.00 ; 10 weeks gestation of Z3A.10 and History of hypothyroidism Z86.39 [place] [address] 67520- 4330 Jun, [place] [address] 38565- 1928 Jun, test positive Z32.01 [place] [address] 60663- 6730 Apr, [place] [address] 68718- 4160 Apr, Female hypertestosteronemia E34.9 [place] [address] 09850- 5538 Mar, Morbid (severe) obesity due to excess calories E66.01 and Irregular menstrual cycle N92.6 [place] [address] 62485- 9175 Mar, Desire for Z31.9 ; Irregular menstrual cycle N92.6 ; Morbid (severe) obesity due to excess calories E66.01 ; Body mass index (BMI) of 40.0-44.9 in adult Z68.41 and BMI 40.0-44.9, adult Z68.41 [facility] [id number] [place] [address] 28261- 0863 Apr, Sore throat J02.9 and Strep throat J02.0 [facility] [address] 94742- 4983 Jul, Hand, foot and mouth disease B08.4 [place] [address] 71337- 3473 May, Missed period N92.6 ; Dysuria R30.0 and Acute cystitis without hematuria N30.00 [place] [address] 89944- 6555 Nov, [facility] [address] 89134- 0885 Nov, Absence of menstruation 626.0 [place] [address] 04549- 2603 September, Generalized headaches 784.0 [facility] [id number] [place] [address] 16302- 2174 Aug, [facility] [id number] [place] [address] 78366- 6724 Aug, [facility] [id number] [place] [address] 22004- 9362 September, [facility] [address] 44996- 1466 September, [facility] [address] [id number] [place] [address] 24484- 5340 September, [facility] [address] 87840- 2058 September, [facility] [place] [facility] [address] [id number] [place] [address]- 4252 Jun, [facility] [place] [facility] [address] [id number] [place] [address]- 4191 Jun, [facility] [place] [facility] [address] [id number] [place] [address]- 7966 Jun, [facility] [place] [facility] [address] [id number] [place] [address]- 9295 Jun, [facility] [place] [facility] [address] [id number] [place] [address]- 3966 Jun, [facility] [place] [facility] [address] [id number] [place] [address]- 7710 May, [facility] [place] [facility] [address] [id number] [place] [address]- 8236 May, [facility] [place] [facility] [address] [id number] [place] [address]- 5957 May, [facility] [place] [facility] [address] [id number] [place] [address]- 4869 May, [facility] [place] [facility] [address] [facility] [id number] [place] [address]- 2436 May, [facility] [place] [facility] [address] [id number] [place] [address]- 9680 Feb, [facility] [place] [facility] [address] [id number] [place] [address]- 1570 Feb, [facility] [place] [facility] [address] [id number] [place] [address]- 4575 Nov, [facility] [place] [facility] [address] [id number] [place] [address]- 9594 Nov, [facility] [place] [facility] [address] [id number] [place] [address]- 9593 Oct, [facility] [place] [facility] [address] [facility] [id number] [place] [address]- 0571 Jul, [facility] [address] [facility] [id number], [place] [address]- 0247 Jul, [facility] [address] [facility] [id number], [place] [address]- 6462 Jul, IMMUNIZATIONS No Known Immunizations SOCIAL HISTORY Never Assessed REASON FOR VISIT OB 1wk f/u--tcuppettRN PLAN OF CARE Activity Details Follow Up 1 Week Reason: VITAL SIGNS Height 66 in 2018-02-06 Weight 293.7 lbs 2018-02-06 Temperature 99.8 degrees Fahrenheit 2018-02-06 Heart Rate 88 bpm 2018-02-06 Respiratory Rate 20 2018-02-06 BMI 47.404 kg/m2 2018-02-06 Blood pressure systolic 110 mmHg 2018-02-06 Blood pressure diastolic 74 mmHg 2018-02-06 MEDICATIONS Medication Instructions Dosage Frequency Start Date End Date Duration Status Blood Pressure Monitor Automat - as directed Dec, Not- Taking Zantac 150 MG Orally twice a day 1 tablet 12h Feb, 30 day(s) Active Complete 14-0.4 MG Active RESULTS No Results PROCEDURES Procedure Date Ordered Result Body Site STREP CULTURE Feb 06, 2018 URINALYSIS, AUTO, W/O SCOPE Feb 06, 2018 INSTRUCTIONS MEDICATIONS ADMINISTERED No Known Medications MEDICAL (GENERAL) HISTORY Type Description Date Medical History IBS Surgical History No know Surgical history
--- OUTSIDE RECORDS SUMMARY | 2018-02-25 21:42 | XMS REPORT ---
Author Author CHELSEA YODER Organization [facility] Address [address] [place] [address] Care Team Providers Care Media Librarian Name Role Phone CHELSEA YODER Unavailable PROBLEMS Type Condition ICD9-CM Code WWH55-BL Code Onset Dates Condition Status SNOMED Code Problem Gastro-esophageal reflux disease without esophagitis K21.9 Active 554490822 Problem History of hypothyroidism Z86.39 Active 111120231 Problem Morbid (severe) obesity due to excess calories E66.01 Active 023620908 Problem Female hypertestosteronemia E34.9 Active 168594885 Problem Irregular menstrual cycle N92.6 Active 73037668 Problem Body mass index (BMI) of 40.0-44.9 in adult Z68.41 Active 377813748 ALLERGIES No Information ENCOUNTERS Encounter Location Date Diagnosis [facility] [id number] [place] [address] 72680- 7232 Dec, [place] [id number] [place] [address] 76769- 5072 Dec, [place] [id number] [place] [address] 61814- 8027 Nov, 2018 BMI 45.0-49.9, adult Z68.42 ; Second trimester Z34.92 and 26 weeks gestation of Z3A.26 [facility] [address] [place] [address] 87268- 9004 Oct, Low back pain M54.5 [place] [id number] [place] [address] 23305- 2808 September, Second trimester Z34.92 ; 17 weeks gestation of Z3A.17 ; Gastro-esophageal reflux disease without esophagitis K21.9 and Diseases of the digestive system complicating , second trimester O99.612 [place] [id number] [place] [address] 02440- 4946 Aug, BMI 40.0-44.9, adult Z68.41 ; Second trimester Z34.92 and 12 weeks gestation of Z3A.12 [place] [id number] [place] [address] 73225- 1195 Aug, Elevated TSH R94.6 and Normal , first Z34.00 [place] [address] 42712- 0666 Aug, Normal , first Z34.00 [place] [address] 97160- 9647 Aug, Elevated TSH R94.6 [place] [address] 33234- 3152 Jul, First trimester Z34.90 ; Normal , first Z34.00 ; 10 weeks gestation of Z3A.10 and History of hypothyroidism Z86.39 [place] [id number] [place] [address] 17278- 2727 Jun, [place] [address] 33235- 7627 Jun, test positive Z32.01 [place] [address] 02220- 2841 Apr, [place] [address] 70848- 9675 Apr, Female hypertestosteronemia E34.9 [place] [address] 49718- 1122 Mar, Morbid (severe) obesity due to excess calories E66.01 and Irregular menstrual cycle N92.6 [place] [id number] [place] [address] 44684- 9446 Mar, Desire for Z31.9 ; Irregular menstrual cycle N92.6 ; Morbid (severe) obesity due to excess calories E66.01 ; Body mass index (BMI) of 40.0-44.9 in adult Z68.41 and BMI 40.0-44.9, adult Z68.41 [facility] [id number] [place] [address] 83479- 4521 Apr, Sore throat J02.9 and Strep throat J02.0 [facility] [address] 28401- 7092 Jul, Hand, foot and mouth disease B08.4 [facility] [id number] [place] [address] 12664- 0308 May, Missed period N92.6 ; Dysuria R30.0 and Acute cystitis without hematuria N30.00 [facility] [id number] [place] [address] 18387- 9718 Nov, [facility] [address] 57620- 7799 Nov, Absence of menstruation 626.0 [facility] [id number] [place] [address] 95777- 9819 September, Generalized headaches 784.0 [facility] [id number] [place] [address] 27459- 0183 Aug, [facility] [id number] [place] [address] 67207- 1750 Aug, [facility] [id number] [place] [address] 97990- 5092 September, [facility] [id number] [place] [address] 90934- 9062 September, [facility] [id number] [place] [address] 29535- 5982 September, [facility] [id number] [place] [address] 06402- 4186 September, [facility] [place] [facility] [address] [id number] [place] [address]- 5515 Jun, [facility] [place] [facility] [address] [id number] [place] 7825 Jun, [facility] [place] [facility] [address] [id number] [place] [address]- 0107 Jun, [facility] [place] [facility] [address] [id number] [place] [address]- 2995 Jun, [facility] [place] [facility] [address] [id number] [place] [address]- 3576 Jun, [facility] [place] [facility] [address] [id number] [place] [address]- 7989 May, [facility] [place] [facility] [address] [id number] [place] [address]- 5502 May, [facility] [place] [facility] [address] [id number] [place] [address]- 6541 May, [facility] [place] [facility] [address] [id number] [place] [address]- 8763 May, [facility] [place] [facility] [address] [facility] [id number] [place] [address]- 7357 May, [facility] [place] [facility] [address] [facility] [id number] [place] [address]- 5522 Feb, [facility] [place] [facility] [address] [id number] [place] [address]- 9276 Feb, [facility] [place] [facility] [address] [id number] [place] [address] Nov, [facility] [place] [facility] [address] [id number] [place] [address] Nov, [facility] [place] [facility] [address] [id number] [place] [address] Oct, [facility] [place] [facility] [address] [id number] [place] [address] Jul, [facility] [address] [facility] [id number] [place] [address] Jul, [facility] [address] [facility] [id number], [place] [address] Jul, IMMUNIZATIONS No Known Immunizations SOCIAL HISTORY Never Assessed REASON FOR VISIT Lab PLAN OF CARE VITAL SIGNS MEDICATIONS Unknown Medications RESULTS No Results PROCEDURES Procedure Date Ordered Result Body Site ASSAY THYROID STIM HORMONE August 16, 2017 [facility] ANEUPLOIDY August 16, 2017 VENIPUNCT, ROUTINE* August 16, 2017 INSTRUCTIONS MEDICATIONS ADMINISTERED No Known Medications MEDICAL (GENERAL) HISTORY Type Description Date Medical History IBS
--- OUTSIDE RECORDS SUMMARY | 2018-02-25 21:42 | XMS REPORT ---
Author Author CHELSEA YODER Organization 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 Apprentice Name Role Phone CHELSEA YODER Unavailable PROBLEMS Type Condition ICD9-CM Code YNH90-AF Code Onset Dates Condition Status SNOMED Code Problem Gastro-esophageal reflux disease without esophagitis K21.9 Active 559546369 Problem History of hypothyroidism Z86.39 Active 209434711 Problem Morbid (severe) obesity due to excess calories E66.01 Active 068658130 Problem Female hypertestosteronemia E34.9 Active 338302685 Problem Irregular menstrual cycle N92.6 Active 92458912 Problem Body mass index (BMI) of 40.0-44.9 in adult Z68.41 Active 767086680 ALLERGIES No Information ENCOUNTERS Encounter Location Date Diagnosis [place] [address] [address]- [address]30 Dec, [place] [address] 01587- 4726 Nov, [place] [address] [place] [id number] [place] [address] 10341- 7747 Oct, Low back pain M54.5 [place] [address] 97692- 9185 September, Second trimester Z34.92 ; 17 weeks gestation of Z3A.17 ; Gastro-esophageal reflux disease without esophagitis K21.9 and Diseases of the digestive system complicating , second trimester O99.612 [facility] [address] [place] [id number] [place] [address] 94921- 9291 Aug, 2018 BMI 40.0-44.9, adult Z68.41 ; Second trimester Z34.92 and 12 weeks gestation of Z3A.12 [place] [address] [place] [id number] [place] [address] 86119- 2665 Aug, Elevated TSH R94.6 and Normal , first Z34.00 [place] [address] [place] [id number] [place] [address] 00987- 0206 Aug, Normal , first Z34.00 [place] [address] 75337- 1290 Aug, Elevated TSH R94.6 [place] [address] [place] [id number] [place] [address] 60863- 0176 Jul, First trimester Z34.90 ; Normal , first Z34.00 ; 10 weeks gestation of Z3A.10 and History of hypothyroidism Z86.39 [place] [address] 26731- 2806 Jun, [place] [address] 43620- 8351 Jun, test positive Z32.01 [place] [address] 14360- 6391 Apr, [place] [address] 42562- 0167 Apr, Female hypertestosteronemia E34.9 [place] [address] [place] [id number] [place] [address] 41191- 3167 Mar, Morbid (severe) obesity due to excess calories E66.01 and Irregular menstrual cycle N92.6 [place] [address] [place] [id number] [place] [address] 59588- 8705 Mar, Desire for Z31.9 ; Irregular menstrual cycle N92.6 ; Morbid (severe) obesity due to excess calories E66.01 ; Body mass index (BMI) of 40.0-44.9 in adult Z68.41 and BMI 40.0-44.9, adult Z68.41 [place] [address] [place] [address]- 2280 Apr, Sore throat J02.9 and Strep throat J02.0 [facility] [address] [place] [id number] [place] [address] 48018- 5815 Jul, Hand, foot and mouth disease B08.4 [facility] [address] [place] [id number] [place] [address] 31264- 6996 May, Missed period N92.6 ; Dysuria R30.0 and Acute cystitis without hematuria N30.00 [facility] [address] [place] [id number] [place] [address] 10482- 7957 Nov, [facility] [address] [place] [address] [id number] [place] [address] 03843- 2187 Nov, Absence of menstruation 626.0 [facility] [address] [place] [id number] [place] [address] 64132- 3420 September, Generalized headaches 784.0 [facility] [address] [place] [id number] [place] [address] 20393- 1597 Aug, [facility] [address] [place] [id number] [place] [address] 52264- 4816 Aug, [facility] [address] [place] [id number] [place] [address] 05973- 9807 September, [facility] [address] [place] [address] [id number] [place] [address] 52420- 8687 September, [facility] [address] [place] [id number] [place] [address] 95123- 2189 September, [facility] [address] [place] [id number] [place] [address] 79393- 0938 September, [facility] [address] [place] [id number] [place] [address] 69227- 4062 Jun, [facility] [address] [place] [id number] [place] [address] 01691- 7267 Jun, [facility] [address] [id number] [place] [address]- 8211 Jun, [facility] [place] [facility] [address] [id number] [place] [address]- 4473 Jun, [facility] [place] [facility] [address] [id number] [place] [address]- 4930 Jun, [facility] [place] [facility] [address] [id number] [place] [address]- 4011 May, [facility] [place] [facility] [address] [id number] [place] [address]- 3986 May, [facility] [place] [facility] [address] [id number] [place] [address]- 2153 May, [facility] [place] [facility] [address] [id number] [place] [address]- 5390 May, [facility] [place] [facility] [address] [id number] [place] [address]- 0642 May, [facility] [place] [facility] [address] [id number] [place] [address]- 4610 Feb, [facility] [place] [facility] [address] [id number] [place] [address]- 7197 Feb, [facility] [place] [facility] [address] [id number] [place] [address]- 4560 Nov, [facility] [place] [facility] [address] [id number] [place] [address]- 4784 Nov, [facility] [place] [facility] [address] [id number] [place] [address]- 1826 Oct, [facility] [place] [facility] [address] [id number] [place] [address]- 1854 29 Jul, 2012 [facility] [place] [facility] [address] [id number] [place] [address]- 2416 15 Jul, 2012 [facility] [place] [facility] [address] [id number] [place] [address]- 2236 Jul, IMMUNIZATIONS No Known Immunizations SOCIAL HISTORY Never Assessed REASON FOR VISIT deferred lab PLAN OF CARE VITAL SIGNS MEDICATIONS Unknown Medications RESULTS No Results PROCEDURES No Known procedures INSTRUCTIONS MEDICATIONS ADMINISTERED No Known Medications MEDICAL (GENERAL) HISTORY Type Description Date Medical History IBS
--- OUTSIDE RECORDS SUMMARY | 2018-02-25 21:42 | XMS REPORT ---
Author Author CHELSEA YODER Organization [facility] Address [address] [place] [address] Care Team Providers Care Sprayer Operator Name Role Phone CHELSEA YODER Unavailable PROBLEMS Type Condition ICD9-CM Code EWO77-CL Code Onset Dates Condition Status SNOMED Code Problem Gastro-esophageal reflux disease without esophagitis K21.9 Active 938586613 Problem History of hypothyroidism Z86.39 Active 763327788 Problem Morbid (severe) obesity due to excess calories E66.01 Active 600273420 Problem Female hypertestosteronemia E34.9 Active 380218128 Problem Irregular menstrual cycle N92.6 Active 07404031 Problem Body mass index (BMI) of 40.0-44.9 in adult Z68.41 Active 573081737 ALLERGIES No Information ENCOUNTERS Encounter Location Date Diagnosis [facility] [address] [place] [id number] [place] [address] 41554- 2616 Dec, [place] [address] [place] [id number] [place] [address] 23285- 0219 Dec, [place] [address] [place] [id number] [place] [address] 60235- 6921 Nov, 2018 BMI 45.0-49.9, adult Z68.42 ; Second trimester Z34.92 and 26 weeks gestation of Z3A.26 [facility] [address] [place] [address] 90342- 6903 Oct, Low back pain M54.5 [place] [address] [place] [id number] [place] [address] 38676- 7542 September, Second trimester Z34.92 ; 17 weeks gestation of Z3A.17 ; Gastro-esophageal reflux disease without esophagitis K21.9 and Diseases of the digestive system complicating , second trimester O99.612 [place] [address] [place] [id number] [place] [address] 00301- 2420 Aug, BMI 40.0-44.9, adult Z68.41 ; Second trimester Z34.92 and 12 weeks gestation of Z3A.12 [place] [address] [place] [id number] [place] [address] 81242- 4725 Aug, Elevated TSH R94.6 and Normal , first Z34.00 [place] [address] 10843- 1540 Aug, Normal , first Z34.00 [place] [address] 16593- 0977 Aug, Elevated TSH R94.6 [place] [address] 77825- 7215 Jul, First trimester Z34.90 ; Normal , first Z34.00 ; 10 weeks gestation of Z3A.10 and History of hypothyroidism Z86.39 [place] [address] [place] [id number] [place] [address] 95844- 0946 Jun, [place] [address] 40569- 9486 Jun, test positive Z32.01 [place] [address] 23518- 5971 Apr, [place] [address] 45636- 3653 Apr, Female hypertestosteronemia E34.9 [place] [address] 54224- 9395 Mar, Morbid (severe) obesity due to excess calories E66.01 and Irregular menstrual cycle N92.6 [place] [address] [place] [id number] [place] [address] 30299- 0548 Mar, Desire for Z31.9 ; Irregular menstrual cycle N92.6 ; Morbid (severe) obesity due to excess calories E66.01 ; Body mass index (BMI) of 40.0-44.9 in adult Z68.41 and BMI 40.0-44.9, adult Z68.41 [facility] [address] [place] [id number] [place] [address] 00698- 3247 Apr, Sore throat J02.9 and Strep throat J02.0 [facility] [address] 87037- 1781 Jul, Hand, foot and mouth disease B08.4 [facility] [address] [place] [id number] [place] [address] 21465- 1807 May, Missed period N92.6 ; Dysuria R30.0 and Acute cystitis without hematuria N30.00 [facility] [address] [place] [id number] [place] [address] 69272- 5709 Nov, [facility] [address] 24466- 7477 Nov, Absence of menstruation 626.0 [facility] [address] [place] [id number] [place] [address] 65307- 5341 September, Generalized headaches 784.0 [facility] [address] [place] [id number] [place] [address] 12772- 3504 Aug, [facility] [address] [place] [id number] [place] [address] 18916- 7582 Aug, [facility] [address] [place] [id number] [place] [address] 37855- 9668 September, [facility] [address] [place] [id number] [place] [address] 64983- 9212 September, [facility] [address] [place] [id number] [place] [address] 62509- 4536 September, [facility] [address] [place] [id number] [place] [address] 62931- 1607 September, [facility] [place] [facility] [address] [id number] [place] [address]- 6587 Jun, [facility] [place] [facility] [address] [id number] [place] 1888 Jun, [facility] [place] [facility] [address] [id number] [place] [address]- 5205 Jun, [facility] [place] [facility] [address] [id number] [place] [address]- 2269 Jun, [facility] [place] [facility] [address] [id number] [place] [address]- 9935 Jun, [facility] [place] [facility] [address] [id number] [place] [address]- 5597 May, [facility] [place] [facility] [address] [id number] [place] [address]- 2407 May, [facility] [place] [facility] [address] [id number] [place] [address]- 9337 May, [facility] [place] [facility] [address] [id number] [place] [address]- 6354 May, [facility] [place] [facility] [address] [facility] [id number] [place] [address]- 3962 May, [facility] [place] [facility] [address] [facility] [id number] [place] [address]- 0515 Feb, [facility] [place] [facility] [address] [id number] [place] [address]- 9995 Feb, [facility] [place] [facility] [address] [id number] [place] [address]- 6631 Nov, [facility] [place] [facility] [address] [id number] [place] [address]- 3664 Nov, [facility] [place] [facility] [address] [id number] [place] [address]- 4596 Oct, [facility] [place] [facility] [address] [id number] [place] [address]- 8136 Jul, [facility] [address] [facility] [id number] [place] [address]- 3941 Jul, [facility] [address] [facility] [id number] [place] [address]- 6196 Jul, IMMUNIZATIONS No Known Immunizations SOCIAL HISTORY Never Assessed REASON FOR VISIT OB 4wk f/u-BREONNA Mac PLAN OF CARE Activity Details Follow Up 4 Weeks Reason: VITAL SIGNS Height 66 in 2017-08-28 Weight 273 lbs 2017-08-28 Temperature 99.3 degrees Fahrenheit 2017-08-28 Heart Rate 88 bpm 2017-08-28 Respiratory Rate 20 2017-08-28 BMI 44.063 kg/m2 2017-08-28 Blood pressure systolic 110 mmHg 2017-08-28 Blood pressure diastolic 80 mmHg 2017-08-28 MEDICATIONS Medication Instructions Dosage Frequency Start Date End Date Duration Status Complete 14-0.4 MG Unknown Levothyroxine Sodium 25 MCG Orally Once a day 1 tablet on an empty stomach in the morning 24h Unknown RESULTS No Results PROCEDURES No Known procedures INSTRUCTIONS MEDICATIONS ADMINISTERED No Known Medications MEDICAL (GENERAL) HISTORY Type Description Date Medical History IBS
--- OUTSIDE RECORDS SUMMARY | 2018-02-25 21:42 | XMS REPORT ---
Author Author CHELSEA YODER Organization [facility] Address [address] [place] [address] Care Team Providers Care Project Management Professional Name Role Phone CHELSEA YODER Unavailable PROBLEMS Type Condition ICD9-CM Code NKQ79-OO Code Onset Dates Condition Status SNOMED Code Problem Gastro-esophageal reflux disease without esophagitis K21.9 Active 323273470 Problem History of hypothyroidism Z86.39 Active 288952257 Problem Morbid (severe) obesity due to excess calories E66.01 Active 311852474 Problem Female hypertestosteronemia E34.9 Active 594099707 Problem Irregular menstrual cycle N92.6 Active 22353763 Problem Body mass index (BMI) of 40.0-44.9 in adult Z68.41 Active 661481851 ALLERGIES No Information ENCOUNTERS Encounter Location Date Diagnosis [facility] [address] [place] [id number] [place] [address] 56001- 5297 Dec, [place] [address] [place] [id number] [place] [address] 75215- 8249 Dec, [place] [address] [place] [id number] [place] [address] 44810- 7882 Nov, 2018 BMI 45.0-49.9, adult Z68.42 ; Second trimester Z34.92 and 26 weeks gestation of Z3A.26 [facility] [address] [place] [address] 64210- 2432 Oct, Low back pain M54.5 [place] [address] [place] [id number] [place] [address] 92683- 5665 September, Second trimester Z34.92 ; 17 weeks gestation of Z3A.17 ; Gastro-esophageal reflux disease without esophagitis K21.9 and Diseases of the digestive system complicating , second trimester O99.612 [place] [address] [place] [id number] [place] [address] 10229- 7269 Aug, BMI 40.0-44.9, adult Z68.41 ; Second trimester Z34.92 and 12 weeks gestation of Z3A.12 [place] [address] [place] [id number] [place] [address] 71942- 9194 Aug, Elevated TSH R94.6 and Normal , first Z34.00 [place] [address] 64927- 3043 Aug, Normal , first Z34.00 [place] [address] 50817- 6180 Aug, Elevated TSH R94.6 [place] [address] 30664- 0693 Jul, First trimester Z34.90 ; Normal , first Z34.00 ; 10 weeks gestation of Z3A.10 and History of hypothyroidism Z86.39 [place] [address] [place] [id number] [place] [address] 40477- 4539 Jun, [place] [address] 50987- 2362 Jun, test positive Z32.01 [place] [address] 61947- 0873 Apr, [place] [address] 45201- 9762 Apr, Female hypertestosteronemia E34.9 [place] [address] 32772- 0785 Mar, Morbid (severe) obesity due to excess calories E66.01 and Irregular menstrual cycle N92.6 [place] [address] [place] [id number] [place] [address] 76088- 0244 Mar, Desire for Z31.9 ; Irregular menstrual cycle N92.6 ; Morbid (severe) obesity due to excess calories E66.01 ; Body mass index (BMI) of 40.0-44.9 in adult Z68.41 and BMI 40.0-44.9, adult Z68.41 [facility] [address] [place] [id number] [place] [address] 72030- 8399 Apr, Sore throat J02.9 and Strep throat J02.0 [facility] [address] 60879- 6530 Jul, Hand, foot and mouth disease B08.4 [facility] [address] [place] [id number] [place] [address] 97836- 8510 May, Missed period N92.6 ; Dysuria R30.0 and Acute cystitis without hematuria N30.00 [facility] [address] [place] [id number] [place] [address] 22822- 5079 Nov, [facility] [address] 25757- 3471 Nov, Absence of menstruation 626.0 [facility] [address] [place] [id number] [place] [address] 88074- 6711 September, Generalized headaches 784.0 [facility] [address] [place] [id number] [place] [address] 23001- 2851 Aug, [facility] [address] [place] [id number] [place] [address] 44654- 4477 Aug, [facility] [address] [place] [id number] [place] [address] 32721- 4253 September, [facility] [address] [place] [id number] [place] [address] 48113- 2630 September, [facility] [address] [place] [id number] [place] [address] 31727- 0963 September, [facility] [address] [place] [id number] [place] [address] 14974- 1403 September, [facility] [place] [facility] [address] [id number] [place] [address]- 4803 Jun, [facility] [place] [facility] [address] [id number] [place] 7210 Jun, [facility] [place] [facility] [address] [id number] [place] [address]- 3904 Jun, [facility] [place] [facility] [address] [id number] [place] [address]- 6012 Jun, [facility] [place] [facility] [address] [id number] [place] [address]- 4443 Jun, [facility] [place] [facility] [address] [id number] [place] [address]- 8914 May, [facility] [place] [facility] [address] [id number] [place] [address]- 9612 May, [facility] [place] [facility] [address] [id number] [place] [address]- 2052 May, [facility] [place] [facility] [address] [id number] [place] [address]- 1172 May, [facility] [place] [facility] [address] [facility] [id number] [place] [address]- 0828 May, [facility] [place] [facility] [address] [facility] [id number] [place] [address]- 1577 Feb, [facility] [place] [facility] [address] [id number] [place] [address]- 8146 Feb, [facility] [place] [facility] [address] [id number] [place] [address]- 1063 Nov, [facility] [place] [facility] [address] [id number] [place] [address]- 8385 Nov, [facility] [place] [facility] [address] [id number] [place] [address]- 2565 Oct, [facility] [place] [facility] [address] [id number] [place] [address]- 4866 Jul, [facility] [address] [facility] [id number] [place] [address]- 4513 Jul, [facility] [address] [facility] [id number] [place] [address]- 1401 Jul, IMMUNIZATIONS No Known Immunizations SOCIAL HISTORY Never Assessed REASON FOR VISIT lab PLAN OF CARE VITAL SIGNS MEDICATIONS Unknown Medications RESULTS No Results PROCEDURES No Known procedures INSTRUCTIONS MEDICATIONS ADMINISTERED No Known Medications MEDICAL (GENERAL) HISTORY Type Description Date Medical History IBS
--- OUTSIDE RECORDS SUMMARY | 2018-02-25 21:42 | XMS REPORT ---
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 Name Role Phone CHELSEA YODER Unavailable PROBLEMS Type Condition ICD9-CM Code FDJ51-QU Code Onset Dates Condition Status SNOMED Code Problem Gastro-esophageal reflux disease without esophagitis K21.9 Active 862410678 Problem History of hypothyroidism Z86.39 Active 775763743 Problem Morbid (severe) obesity due to excess calories E66.01 Active 050972477 Problem Female hypertestosteronemia E34.9 Active 643842931 Problem Irregular menstrual cycle N92.6 Active 40664160 Problem Body mass index (BMI) of 40.0-44.9 in adult Z68.41 Active [id number] ALLERGIES No Known Allergies ENCOUNTERS Encounter Location Date Diagnosis [place] [id number] [place] [address] 86684- 6248 Dec, [place] [address] [id number] [place] [address] 68367- 9806 Dec, [place] [id number] [place] [address] 02026- 6878 Nov, 2018 BMI 45.0-49.9, adult Z68.42 ; Second trimester Z34.92 and 26 weeks gestation of Z3A.26 [facility] [id number] [place] [address] 83157- 1109 Oct, Low back pain M54.5 [place] [id number] [place] [address] 91894- 1892 September, Second trimester Z34.92 ; 17 weeks gestation of Z3A.17 ; Gastro-esophageal reflux disease without esophagitis K21.9 and Diseases of the digestive system complicating , second trimester O99.612 [place] [id number] [place] [address] 82114- 4786 Aug, BMI 40.0-44.9, adult Z68.41 ; Second trimester Z34.92 and 12 weeks gestation of Z3A.12 [place] [id number] [place] [address] 41994- 3931 Aug, Elevated TSH R94.6 and Normal , first Z34.00 [place] [address] [address]- [address] Aug, Normal , first Z34.00 [place] [address] 82771- 8945 Aug, Elevated TSH R94.6 [place] [address] 53443- 7151 Jul, First trimester Z34.90 ; Normal , first Z34.00 ; 10 weeks gestation of Z3A.10 and History of hypothyroidism Z86.39 [place] [id number] [place] [address] 42842- 9835 Jun, [place] [address] 68093- 3910 Jun, test positive Z32.01 [place] [address] 24315- 1653 Apr, [place] [address] 40969- 3479 Apr, Female hypertestosteronemia E34.9 [place] [address] 59039- 0571 Mar, Morbid (severe) obesity due to excess calories E66.01 and Irregular menstrual cycle N92.6 [place] [address] 22358- 4058 Mar, Desire for Z31.9 ; Irregular menstrual cycle N92.6 ; Morbid (severe) obesity due to excess calories E66.01 ; Body mass index (BMI) of 40.0-44.9 in adult Z68.41 and BMI 40.0-44.9, adult Z68.41 [facility] [id number] [place] [address] 90133- 9157 Apr, Sore throat J02.9 and Strep throat J02.0 [facility] [address] 36622- 4120 Jul, Hand, foot and mouth disease B08.4 [facility] [id number] [place] [address] 85786- 5731 May, Missed period N92.6 ; Dysuria R30.0 and Acute cystitis without hematuria N30.00 [facility] [id number] [place] [address] 92529- 8114 Nov, [facility] [address] 02201- 6598 Nov, Absence of menstruation 626.0 [facility] [id number] [place] [address] 69766- 0163 September, Generalized headaches 784.0 [facility] [id number] [place] [address] 13430- 4577 Aug, [facility] [id number] [place] [address] 15322- 5766 Aug, [facility] [id number] [place] [address] 84306- 0721 September, [facility] [id number] [place] [address] 78554- 0560 September, [facility] [id number] [place] [address] 76126- 5263 September, [facility] [id number] [place] [address] 94101- 7970 September, [facility] [place] [facility] [address] [id number] [place] [address]- 5704 Jun, [facility] [place] [facility] [address] [id number] [place] [address]- 5542 Jun, [facility] [place] [facility] [address] [id number] [place] [address]- 8907 Jun, [facility] [place] [facility] [address] [id number] [place] [address]- 1120 Jun, [facility] [place] [facility] [address] [id number] [place] [address]- 6076 Jun, [facility] [place] [facility] [address] [id number] [place] [address]- 4136 May, [facility] [place] [facility] [address] [id number] [place] [address]- 3514 May, [facility] [place] [facility] [address] [id number] [place] [address]- 8238 May, [facility] [place] [facility] [address] [id number] [place] [address]- 7378 May, [facility] [place] [facility] [address] [id number] [place] [address]- 5101 May, [facility] [place] [facility] [address] [id number] [place] [address]- 4979 Feb, [facility] [place] [facility] [address] [id number], [place] [address] 5749 Feb, [facility] [place] [facility] [address] [id number] [place] [address]- 7482 Nov, [facility] [place] [facility] [address] [id number] [place] [address]- 9730 Nov, [facility] [place] [facility] [address] [id number] [place] [address]- 6399 Oct, [facility] [place] [facility] [address] [id number], [place] [address] 6884 Jul, [facility] [address] [facility] [id number] [place] [address]- 0420 Jul, [facility] [address] [facility] [id number] [address] 0387 Jul, IMMUNIZATIONS No Known Immunizations SOCIAL HISTORY Never Assessed REASON FOR VISIT OB-intake -- isaias borrero, having morning sickness PLAN OF CARE Activity Details Follow Up 4 Weeks Reason: Pending Test PAP REFLEX TO HPV IF ASCUS VITAL SIGNS Height 66 in 2017-07-31 Weight 273.6 lbs 2017-07-31 Temperature 97.09 degrees Fahrenheit 2017-07-31 Heart Rate 78 bpm 2017-07-31 Respiratory Rate 22 2017-07-31 BMI 44.16 kg/m2 2017-07-31 Blood pressure systolic 128 mmHg 2017-07-31 Blood pressure diastolic 88 mmHg 2017-07-31 MEDICATIONS Medication Instructions Dosage Frequency Start Date End Date Duration Status Levothyroxine Sodium 25 MCG Orally Once a day 1 tablet on an empty stomach in the morning 24h Not-Taking Complete 14-0.4 MG Active RESULTS No Results PROCEDURES Procedure Date Ordered Result Body Site COMPLETE CBC W/AUTO DIFF WBC July 31, 2017 SPECIMEN HANDLING July 31, 2017 CULTURE, BACTERIA, OTHER July 31, 2017 URINE CULTURE/COLONY COUNT July 31, 2017 RBC ANTIBODY SCREEN July 31, 2017 BLOOD TYPING, ABO July 31, 2017 BLOOD TYPING, RH (D) July 31, 2017 ASSAY THYROID STIM HORMONE July 31, 2017 RUBELLA ANTIBODY July 31, 2017 No Charge July 31, 2017 URINALYSIS, AUTO, W/O SCOPE July 31, 2017 VENIPUNCT, ROUTINE* July 31, 2017 TRICHOMONAS ASSAY W/OPTIC July 31, 2017 INSTRUCTIONS MEDICATIONS ADMINISTERED No Known Medications MEDICAL (GENERAL) HISTORY Type Description Date Medical History IBS
--- OUTSIDE RECORDS SUMMARY | 2018-02-25 21:43 | XMS REPORT | Continuity of Care Document ---
Author Author [facility] Address Unknown Phone Unavailable Allergies Active Description Code Type Severity Reaction Onset Reported/Identified Relationship to Patient Clinical Status Yes NO KNOWN DRUG ALLERGIES UNKNOWN NO KNOWN DRUG ALLERG Yes No Known Drug Allergies [id number] Drug Allergy Unknown N/A 02/25/2018 Medications Medication Packaging Start Date Stop Date Route Dosage Sig ONDANSETRON VIAL INJ 4 MG/2CC (ZOFRAN 2CC VIAL) MG 01/09/2017 01/09/2017 ONCE&1616 FENTANYL INJ 100 MCG/2CC VIAL MCG 01/09/2017 01/09/2017 ONCE&1616 KETOROLAC VIAL INJ 30 MG/CC (TORADOL VIAL) MG 01/09/2017 01/09/2017 ONCE&1708 NORMAL SALINE 500CC IV BAG INJ 0.9 % (NS 500CC IV BAG) ml 12/03/2017 12/03/2017 ONCE&1643 ONDANSETRON VIAL INJ 4 MG/2CC (ZOFRAN 2CC VIAL) MG 12/03/2017 12/03/2017 PRN ONCE Problems Date Dx Coded Attending Type Code Diagnosis Diagnosed By 07/20/2012 LARRY TRIVEDI DO 626.0 AMENORRHEA 07/20/2012 LARRY TRIVEDI DO V25.01 CONTRACEPTION - ORAL CONTRACEPTION 07/20/2012 LARRY TRIVEDI DO V72.41 TEST NEGATIVE RESULT 07/20/2012 626.0 AMENORRHEA 07/20/2012 V25.01 CONTRACEPTION - ORAL CONTRACEPTION 07/20/2012 V72.41 TEST NEGATIVE RESULT 07/20/2012 LARRY TRIVEDI DO 626.0 AMENORRHEA 07/20/2012 LARRY TRIVEDI DO V25.01 CONTRACEPTION - ORAL CONTRACEPTION 07/20/2012 LARRY TRIVEDI DO V72.41 TEST NEGATIVE RESULT 07/20/2012 NILSON CUBA APRNINA R 626.0 AMENORRHEA 07/20/2012 MIKE CUBA APRN R V25.01 CONTRACEPTION - ORAL CONTRACEPTION 07/20/2012 ROSA ELENA STAFF ATTORNEY, MIKE R V72.41 TEST NEGATIVE RESULT 07/20/2012 ROSA ELENA STAFF ATTORNEY, MIKE R 626.0 AMENORRHEA 07/20/2012 ROSA ELENA STAFF ATTORNEY, MIKE R V25.01 CONTRACEPTION - ORAL CONTRACEPTION 07/20/2012 ROSA ELENA STAFF ATTORNEY, MIKE R V72.41 TEST NEGATIVE RESULT 07/20/2012 ROSA ELENA STAFF ATTORNEY, MIKE R 626.0 AMENORRHEA 07/20/2012 ROSA ELENA STAFF ATTORNEY, MIKE R V25.01 CONTRACEPTION - ORAL CONTRACEPTION 07/20/2012 ROSA ELENA STAFF ATTORNEY, MIKE R V72.41 TEST NEGATIVE RESULT 07/20/2012 GEETHA STUART APRN 626.0 AMENORRHEA 07/20/2012 GEETHA STUART APRN V25.01 CONTRACEPTION - ORAL CONTRACEPTION 07/20/2012 GEETHA STUART APRN V72.41 TEST NEGATIVE RESULT 10/23/2012 V25.9 CONTRACEPTION MANAGEMENT 10/23/2012 LARRY TRIVEDI DO K V25.9 CONTRACEPTION MANAGEMENT 10/23/2012 ROSA ELENA STAFF ATTORNEY, MIKE R V25.9 CONTRACEPTION MANAGEMENT 10/23/2012 ROSA ELENA STAFF ATTORNEY, MIKE R V25.9 CONTRACEPTION MANAGEMENT 10/23/2012 ROSA ELENA STAFF ATTORNEY, MIKE R V25.9 CONTRACEPTION MANAGEMENT 10/23/2012 GEETHA STUART APRN V25.9 CONTRACEPTION MANAGEMENT 02/21/2013 SHIKHA DOWENDIA K 719.46 PAIN IN JOINT INVOLVING LOWER LEG 02/21/2013 ROSA ELENA JUSTICEN, MIKE R 719.46 PAIN IN JOINT INVOLVING LOWER LEG 02/21/2013 ROSA ELENA JUSTICEN MIKE R 719.46 PAIN IN JOINT INVOLVING LOWER LEG 02/21/2013 ROSA ELENA JUSTICEN, MIKE R 719.46 PAIN IN JOINT INVOLVING LOWER LEG 02/21/2013 GEETHA STUART APRN 719.46 PAIN IN JOINT INVOLVING LOWER LEG 06/05/2013 ROSA ELENA STAFF ATTORNEY, MIKE R 599.0 URINARY TRACT INFECTION 06/05/2013 ROSA ELENA JUSTICEN, MIKE R 789.00 ABDOMINAL PAIN UNSPECIFIED SITE 06/05/2013 ROSA ELENA STAFF ATTORNEY, MIKE R 599.0 URINARY TRACT INFECTION 06/05/2013 ROSA ELENA JUSTICEN, MIKE R 789.00 ABDOMINAL PAIN UNSPECIFIED SITE 06/05/2013 ROSA ELENA JUSTICEN, MIKE R 599.0 URINARY TRACT INFECTION 06/05/2013 ROSA ELENA HAIR, MIKE R 789.00 ABDOMINAL PAIN UNSPECIFIED SITE 06/05/2013 GEETHA STUART APRN T 599.0 URINARY TRACT INFECTION 06/05/2013 GEETHA STUART APRN T 789.00 ABDOMINAL PAIN UNSPECIFIED SITE 07/03/2013 ROSA ELENA JUSTICENMIKE R 569.42 ANAL OR RECTAL PAIN 07/03/2013 GEETHA STUART APRN T 569.42 ANAL OR RECTAL PAIN 10/02/2013 GEETHA STUART APRN T 558.9 GASTROENTERITIS NONINFECTIOUS 01/09/2017 Scott Olivares 789.07 ABDOMINAL PAIN, GENERALIZED 01/09/2017 Scott Olivares R10.84 GENERALIZED ABDOMINAL PAIN 06/07/2017 FENECH DO, HAN S Ot N93.9 ABNORMAL UTERINE AND VAGINAL BLEEDING, U 08/02/2017 FENECH DOHAN S Ot N93.9 ABNORMAL UTERINE AND VAGINAL BLEEDING, U 08/04/2017 CHELSEA YODER MD Ot Z34.00 ENCNTR FOR SUPRVSN OF NORMAL FIRST PREGN 08/04/2017 CHELSEA YODER MD Ot Z3A.09 9 WEEKS GESTATION OF 10/24/2017 CHELSEA YODER MD Ot Z36.89 ENCOUNTER FOR OTHER SPECIFIED 10/24/2017 CHELSEA YODER MD Ot Z3A.22 22 WEEKS GESTATION OF 11/06/2017 CHELSEA YODER MD Ot Z34.00 ENCNTR FOR SUPRVSN OF NORMAL FIRST PREGN 11/06/2017 CHELSEA YODER MD Ot Z3A.09 9 WEEKS GESTATION OF 11/09/2017 CHELSEA YODER MD Ot Z36.89 ENCOUNTER FOR OTHER SPECIFIED 11/09/2017 CHELSEA YODER MD Ot Z3A.22 22 WEEKS GESTATION OF 12/03/2017 Meron Santiago W 276.51 DEHYDRATION 12/03/2017 Meron Santiago 643.2 LATE VOMITING OF 12/03/2017 Meron Santiago A 648.91 OTHER CURRENT CONDITIONS CLASSIFIABLE ELSEWHERE, COMPLICATING , CHILDBIRTH, OR THE PUERPERIUM, DELIVERED, WITH OR WITHOUT MENTION OF ANTEPARTUM CONDITION 12/03/2017 Meron Santiago E86.0 DEHYDRATION 12/03/2017 Brokob, Meron W O21.2 LATE VOMITING OF 12/03/2017 David Santiagoya Gurwinder O99.282 ENDO, NUTRITIONAL AND METAB DISEASES COMP PREG, SECOND TRI Procedures Code [place] [address] URINE TEST (IN- HOUSE) 07/20/2012 68151 GC/CHLAM URINE (STATE) 07/22/2012 75444 TEST, URINE (IN- HOUSE) 06/05/2013 68081 UA W/ CULTURE IF INDICATED 06/05/2013 65374 ROUTINE VENIPUNCTURE 06/05/2013 04120 CBC 06/05/2013 9934350 GFR CALC (RESULT ONLY) 06/05/2013 28621 CMP 06/05/2013 37414 LIPASE 06/05/2013 89541 CULTURE URINE 06/06/2013 63765 HEMOCCULT 07/03/2013 Results Test Result Range Urinalysis - 01/09/17 16:16 Icotest N/A Negative Urine Volume Urine Volume Sufficient (10mL) Urine Yeast No Yeast present Urine-Appearance Clear Clear Urine-Bacteria Trace Urine-Bilirubin Negative Negative Urine-Blood Negative Negative Urine-Color Yellow Colorless-Lt. Yellow Urine-Epithelial Cells 5-10/HPF Urine-Glucose Negative Negative Urine-Ketones Negative Negative Urine-Leukocytes Negative Negative Urine-Mucus 1+ Urine-Nitrite Negative Negative Urine-Other Urine Saved if Culture Needed (48hrs from time of collection) Urine-pH 5.5 5-8.5 Urine-Protein Negative Negative Urine-RBC Negative Urine-Specific Burr 1.025 1.000-1.030 Urine-WBC Negative Urobilinogen 0.2 E.U./dL 0.2-1.0 Comprehensive Metabolic Panel - 01/09/17 17:26 Albumin 4.0 g/dL 3.6-5.1 ALP 63 U/L 35-130 ALT 37 U/L 6-45 Anion Gap 13 6-14 AST 24 U/L 2-40 BUN 11 mg/dL 5-25 Calcium 9.3 mg/dL 8.3-10.4 Chloride 107 mmol/L 95-114 CO2 23 mEq/L 22-33 Creat 0.73 mg/dL 0.50-1.50 eGFR 97 mL/min/1.73m2 >59 Globulin 3.6 g/dL 2.3-3.5 Glucose 110 mg/dL 70-110 Osmo 287 280-295 Potassium 4.1 mmol/L 3.5-5.3 Sodium 139 mmol/L 134-148 TBil 0.5 mg/dL 0.2-1.2 TP 7.6 g/dL 6.0-8.3 INSULIN LEVEL - 04/05/17 16:40 INSULIN 15.2 uIU/mL 2.0-19.6 A1C - 04/05/17 16:40 HEMOGLOBIN A1c 5.1 % of total Hgb <5.7 TESTOSTERONE, TOTAL (WOMEN, CHILDREN, HYPOGONADAL MALES) - 04/05/17 16:40 TESTOSTERONE, TOTAL, LC/MS/MS 56 ng/dL 2-45 FREE TESTOSTERONE 7.0 pg/mL 0.1-6.4 TSH - 07/31/17 15:30 TSH 5.12 mIU/L [facility] SUREPATH PAP RFX HPV mRNA E6/E7 - 07/31/17 15:44 CLINICAL INFORMATION: [facility] LMP: [id number] NR PREV. PAP: 2015 NR PREV. BX: NRG SOURCE: Cervix NR STATEMENT OF ADEQUACY: NR INTERPRETATION/RESULT: [facility] ADMINISTRATION ASSISTANT: NRG COMMENT NR TSH - 08/16/17 16:38 TSH 3.97 mIU/L [facility] Comprehensive Metabolic Panel - 12/03/17 16:55 Albumin 3.6 g/dL 3.6-5.1 ALP 74 U/L 35-130 ALT 23 U/L 6-45 Anion Gap 18 6-14 AST 14 U/L 2-40 BUN 6 mg/dL 5-25 Calcium 9.7 mg/dL 8.3-10.4 Chloride 104 mmol/L 95-114 CO2 20 mEq/L 22-33 Creat 0.65 mg/dL 0.50-1.50 eGFR 111 mL/min/1.73m2 >59 Globulin 3.5 g/dL 2.3-3.5 Glucose 86 mg/dL 70-110 Osmo 282 280-295 Potassium 4.0 mmol/L 3.5-5.3 Sodium 138 mmol/L 134-148 TBil 0.2 mg/dL 0.2-1.2 TP 7.1 g/dL 6.0-8.3 GLUCOSE JOHN 1 HOUR - 12/20/17 16:59 GLUCOSE, POSTPRANDIAL/ 1 HOUR 119 mg/dL See Note: CBC - 12/20/17 16:59 WHITE BLOOD CELL COUNT 8.9 Thousand/uL 3.8-10.8 RED BLOOD CELL COUNT 4.12 Million/uL 3.80-5.10 HEMOGLOBIN 11.6 g/dL 11.7-15.5 HEMATOCRIT 34.8 % 35.0-45.0 MCV 84.5 fL 80.0-100.0 MCH 28.2 pg 27.0-33.0 MCHC 33.3 g/dL 32.0-36.0 RDW 13.3 % 11.0-15.0 PLATELET COUNT 288 Thousand/uL 140-400 MPV 11.3 fL 7.5-12.5 ABSOLUTE NEUTROPHILS 6800 cells/uL 4826-7999 ABSOLUTE LYMPHOCYTES 1531 cells/uL 850-3900 ABSOLUTE MONOCYTES 507 cells/uL 200-950 ABSOLUTE EOSINOPHILS 53 cells/uL 15-500 ABSOLUTE BASOPHILS 9 cells/uL 0-200 NEUTROPHILS 76.4 % NRG LYMPHOCYTES 17.2 % NRG MONOCYTES 5.7 % NRG EOSINOPHILS 0.6 % NRG BASOPHILS 0.1 % NRG CULTURE, GROUP B STREP (VAGINAL) - 02/06/18 16:30 STREPTOCOCCUS, GROUP B CULTURE SEE NOTE NRG Encounters ACCT No. Visit Date/Time Discharge Status Pt. Type Provider Facility Loc./Unit Complaint [id number] 10/02/2013 18:55:00 10/02/2013 23:59:59 CLS Outpatient GEETHA STUART APRN [id number] 07/03/2013 08:59:00 07/03/2013 23:59:59 CLS Outpatient MIKE CUBA APRN [id number] 06/11/2013 16:24:00 06/11/2013 23:59:59 CLS Outpatient MIKE CUBA APRN [id number] 06/05/2013 13:53:00 06/05/2013 23:59:59 CLS Outpatient MIKE CUBA APRN [id number] 02/21/2013 14:38:00 02/21/2013 23:59:59 CLS Outpatient LARRY TRIVEDI DO [id number] 07/20/2012 14:29:00 07/20/2012 23:59:59 CLS Outpatient LARRY TRIVEDI DO [id number] 10/23/2012 14:52:00 Document Registration [id number] 10/23/2017 15:38:00 10/23/2017 23:59:59 CLS Outpatient CHELSEA YODER MD [facility] RAD 17 WEEKS GESTATION OF [id number] 08/03/2017 16:51:00 08/03/2017 23:59:59 CLS Outpatient CHELSEA YODER MD [facility] RAD Z34.00 NORMAL PREGANANCY, FIRST [id number] 05/22/2017 16:49:00 05/22/2017 23:59:59 CLS Outpatient EDITHGALO HAN PLATT S [facility] RAD AUB [id number] 02/25/2018 21:34:00 ACT Inpatient TERRI LAWTON MD [facility] LDRP LOSING FLUID [id number] 11/30/2017 11:00:00 11/30/2017 23:59:59 CLS Outpatient ROSAURA MAGANA [facility] [id number] 02/06/2018 16:00:00 Document Registration [id number] 12/20/2017 16:00:00 Document Registration [id number] 08/16/2017 16:30:00 Document Registration [id number] 07/31/2017 14:20:00 Document Registration [id number] 04/05/2017 16:20:00 Document Registration [id number] 12/03/2017 16:21:00 12/03/2017 18:00:00 DIS Outpatient Meron Santiago [id number] 01/09/2017 15:45:00 01/09/2017 19:38:00 [id number] 01/09/2017 16:44:17 Document Registration
--- OUTSIDE RECORDS SUMMARY | 2018-02-25 21:43 | XMS REPORT ---
Author Author TRINH KLEIN Organization [facility] Address [address] [place] [address] Care Team Providers Care Printer Helper Name Role Phone TRINH KLEIN Unavailable PROBLEMS Type Condition ICD9-CM Code BQD85-UV Code Onset Dates Condition Status SNOMED Code Problem Gastro-esophageal reflux disease without esophagitis K21.9 Active 346274235 Problem History of hypothyroidism Z86.39 Active 698116459 Problem Morbid (severe) obesity due to excess calories E66.01 Active 528884454 Problem Female hypertestosteronemia E34.9 Active 862110871 Problem Irregular menstrual cycle N92.6 Active 05710289 Problem Body mass index (BMI) of 40.0-44.9 in adult Z68.41 Active 220651133 ALLERGIES No Information ENCOUNTERS Encounter Location Date Diagnosis [address] [address] Oct, [address] [address] September, Second trimester Z34.92 ; 17 weeks gestation of Z3A.17 ; Gastro-esophageal reflux disease without esophagitis K21.9 and Diseases of the digestive system complicating , second trimester O99.612 [place] [id number] [place] [address]- [address] Aug, BMI 40.0-44.9, adult Z68.41 ; Second trimester Z34.92 and 12 weeks gestation of Z3A.[address] [address]- [address] 11 Aug, 2017 Elevated TSH R94.6 and Normal , first Z34.[address] [address] Aug, Normal , first Z34.00 [place] [id number] [place] [address] 83083- 3765 Aug, Elevated TSH R94.6 [place] [id number] [place] [address]- 6139 Jul, First trimester Z34.90 ; Normal , first Z34.00 ; 10 weeks gestation of Z3A.10 and History of hypothyroidism Z86.39 [place] [id number] [place] [address]- [address] Jun, [address] [address] Jun, test positive Z32.[address] [address] Apr, [place] [address] [address] Apr, Female hypertestosteronemia E34.[address] [address] Mar, Morbid (severe) obesity due to excess calories E66.01 and Irregular menstrual cycle N92.6 [place] [id number] [place] [address]- 9[address] Mar, Desire for Z31.9 ; Irregular menstrual cycle N92.6 ; Morbid (severe) obesity due to excess calories E66.01 ; Body mass index (BMI) of 40.0-44.9 in adult Z68.41 and BMI 40.0-44.9, adult Z68.41 [place] [address] [address] Apr, Sore throat J02.9 and Strep throat J02.[address] [address] Jul, Hand, foot and mouth disease B08.4 [facility] [address] [address] May, Missed period N92.6 ; Dysuria R30.0 and Acute cystitis without hematuria N30.00 [facility] [id number] [place] [address]- [address] Nov, [facility] [address] [address] Nov, Absence of menstruation 626.0 [facility] [id number] [place] [address]- 0[address] September, Generalized headaches 784.0 [facility] [id number] [place] [address] 91297- 8538 Aug, [facility] [id number] [place] [address] 17205- 7205 Aug, [facility] [id number] [place] [address] 12105- 1475 September, [facility] [id number] [place] [address] 67217- 9463 September, [facility] [id number] [place] [address] 06159- 8418 September, [facility] [id number] [place] [address] 19330- 9951 September, [facility] [id number] [place] [address] 63095- 6460 Jun, [facility] [id number] [place] [address] 57765- 9489 Jun, [facility] [id number] [place] [address] 96068- 6135 Jun, [facility] [id number] [place] [address] 62208- 2497 Jun, [facility] [address] [facility] [id number] [address] Jun, [facility] [address] [facility] [id number] [place] [address] May, [facility] [address] [facility] [id number] [place] [address] May, [facility] [address] [facility] [id number] [place] [address] May, [facility] [address] [facility] [id number] [place] [address] May, [facility] [address] [facility] [id number] [place] [address] May, [facility] [address] [place] [address] Feb, [facility] [address] [address] 3[address] Feb, [facility] [address] [address] Nov, [facility] [address] [address] 3[address] Nov, [facility] [address] [address] 8[address] Oct, [facility] [id number] [address] Jul, [facility] [id number] [address] Jul, [facility] [address] [address] Jul, IMMUNIZATIONS No Known Immunizations SOCIAL HISTORY Never Assessed REASON FOR VISIT referral PLAN OF CARE VITAL SIGNS MEDICATIONS Unknown Medications RESULTS No Results PROCEDURES No Known procedures INSTRUCTIONS MEDICATIONS ADMINISTERED No Known Medications MEDICAL (GENERAL) HISTORY Type Description Date Medical History IBS
--- OUTSIDE RECORDS SUMMARY | 2018-02-25 21:43 | XMS REPORT ---
Author Author TRINH KLEIN Organization [facility] Address [address] [place] [address] Care Team Providers Care Veterinarian Small Animal Name Role Phone TRINH KLEIN Unavailable PROBLEMS Type Condition ICD9-CM Code LYL00-OJ Code Onset Dates Condition Status SNOMED Code Problem Gastro-esophageal reflux disease without esophagitis K21.9 Active 389445179 Problem History of hypothyroidism Z86.39 Active 195004065 Problem Morbid (severe) obesity due to excess calories E66.01 Active 515518846 Problem Female hypertestosteronemia E34.9 Active 610201639 Problem Irregular menstrual cycle N92.6 Active 14471422 Problem Body mass index (BMI) of 40.0-44.9 in adult Z68.41 Active 017526801 ALLERGIES No Information ENCOUNTERS Encounter Location Date Diagnosis [address] [address] Oct, [address] [address] September, Second trimester Z34.92 ; 17 weeks gestation of Z3A.17 ; Gastro-esophageal reflux disease without esophagitis K21.9 and Diseases of the digestive system complicating , second trimester O99.612 [place] [id number] [place] [address] Aug, BMI 40.0-44.9, adult Z68.41 ; Second trimester Z34.92 and 12 weeks gestation of Z3A.[address] [address] 11 Aug, 2017 Elevated TSH R94.6 and Normal , first Z34.[address] [address] Aug, Normal , first Z34.00 [place] [address] [place] [id number] [place] [address]65- [address] Aug, Elevated TSH R94.6 [place] [address] [place] [id number] [place] [address] Jul, First trimester Z34.90 ; Normal , first Z34.00 ; 10 weeks gestation of Z3A.10 and History of hypothyroidism Z86.39 [place] [address] [place] [id number] [place] [address]- [address] Jun, [address] [address] Jun, test positive Z32.[address] [address] Apr, [place] [address] [address] Apr, Female hypertestosteronemia E34.[address] [address] Mar, Morbid (severe) obesity due to excess calories E66.01 and Irregular menstrual cycle N92.6 [place] [id number] [place] [address] Mar, Desire for Z31.9 ; Irregular menstrual cycle N92.6 ; Morbid (severe) obesity due to excess calories E66.01 ; Body mass index (BMI) of 40.0-44.9 in adult Z68.41 and BMI 40.0-44.9, adult Z68.41 [place] [address] [address] Apr, Sore throat J02.9 and Strep throat J02.[address] [address] Jul, Hand, foot and mouth disease B08.4 [facility] [address] [address] May, Missed period N92.6 ; Dysuria R30.0 and Acute cystitis without hematuria N30.00 [facility] [address] [place] [id number] [place] [address] Nov, [facility] [address] [address] Nov, Absence of menstruation 626.0 [facility] [address] [place] [id number] [place] [address] September, Generalized headaches 784.0 [facility] [address] [place] [id number] [place] [address]- 6[address] Aug, [facility] [address] [place] [id number] [place] [address]609- 6[address] Aug, [facility] [address] [place] [address] [id number] [place] [address]- [address] September, [facility] [address] [place] [id number] [place] [address]- 43[address] September, [facility] [address] [place] [id number] [place] [address] 47[address]- 6[address] September, [facility] [address] [place] [id number] [place] [address]99- 5[address] September, [facility] [address] [place] [id number] [place] [address]- [address] Jun, [facility] [address] [place] [id number] [place] [address] 8[address]24- [address] Jun, [facility] [address] [place] [id number] [place] [address] 75205- 0[address] Jun, [facility] [address] [place] [address] [id number] [place] [address] 36442- 35[address] Jun, [facility] [address] [facility] [id number], [place] [address] Jun, [facility] [address] [facility] [id number], [place] [address] May, [facility] [address] [facility] [id number], [place] [address] May, [facility] [address] [facility] [id number], [place] [address] May, [facility] [address] [facility] [id number], [place] [address] May, [facility] [address] [facility] [id number], [place] [address] May, [facility] [address], [place] [address] Feb, [facility] [address], [place] [address] Feb, [facility] [address], [place] [address] Nov, [facility] [id number], [place] [address] Nov, [facility] [address], [place] [address] Oct, [facility] [address] [place] [id number] [address] Jul, [facility] [address] [place] [id number] [address] Jul, [facility] [address], [place] [address] Jul, IMMUNIZATIONS No Known Immunizations SOCIAL HISTORY Never Assessed REASON FOR VISIT Referral PLAN OF CARE VITAL SIGNS MEDICATIONS Unknown Medications RESULTS No Results PROCEDURES No Known procedures INSTRUCTIONS MEDICATIONS ADMINISTERED No Known Medications MEDICAL (GENERAL) HISTORY Type Description Date Medical History IBS
--- OUTSIDE RECORDS SUMMARY | 2018-02-25 21:43 | XMS REPORT ---
Author Author LARRY TRIVEDI [facility] Address [address] [place] [address] Care Team Providers Care Survey Compiler Name Role Phone LARRY TRIVEDI Unavailable PROBLEMS Type Condition ICD9-CM Code JQV98-EX Code Onset Dates Condition Status SNOMED Code Problem Gastro-esophageal reflux disease without esophagitis K21.9 Active 433498050 Problem History of hypothyroidism Z86.39 Active 164011130 Problem Morbid (severe) obesity due to excess calories E66.01 Active 191116656 Problem Female hypertestosteronemia E34.9 Active 594462818 Problem Irregular menstrual cycle N92.6 Active 46159126 Problem Body mass index (BMI) of 40.0-44.9 in adult Z68.41 Active 378325508 ALLERGIES No Information ENCOUNTERS Encounter Location Date Diagnosis [place] [address] [address] Dec, [place] [address] [address] Nov, [place] [address] [place] [id number] [place] [address] Oct, Low back pain M54.5 [place] [address] [address] September, Second trimester Z34.92 ; 17 weeks gestation of Z3A.17 ; Gastro-esophageal reflux disease without esophagitis K21.9 and Diseases of the digestive system complicating , second trimester O99.612 [place] [address] [address] Aug, 2018 BMI 40.0-44.9, adult Z68.41 ; Second trimester Z34.92 and 12 weeks gestation of Z3A.12 [place] [address] [place] [id number] [place] [address] Aug, Elevated TSH R94.6 and Normal , first Z34.00 [place] [address] [place] [id number] [place] [address]- [address] Aug, Normal , first Z34.00 [place] [address] [address] Aug, Elevated TSH R94.6 [place] [address] [place] [id number] [place] [address]- [address] Jul, First trimester Z34.90 ; Normal , first Z34.00 ; 10 weeks gestation of Z3A.10 and History of hypothyroidism Z86.39 [place] [address] [address] Jun, [place] [address] [address] Jun, test positive Z32.01 [place] [address] [address]- [address] Apr, [address] [address] Apr, Female hypertestosteronemia E34.9 [place] [id number] [place] [address]- [address] Mar, Morbid (severe) obesity due to excess calories E66.01 and Irregular menstrual cycle N92.6 [place] [address] [place] [id number] [place] [address]- [address] Mar, Desire for Z31.9 ; Irregular menstrual cycle N92.6 ; Morbid (severe) obesity due to excess calories E66.01 ; Body mass index (BMI) of 40.0-44.9 in adult Z68.41 and BMI 40.0-44.9, adult Z68.41 [place] [address] [place] [address]- [address] Apr, Sore throat J02.9 and Strep throat J02.0 [facility] [address] [place] [id number] [place] [address]111- 6[address] Jul, Hand, foot and mouth disease B08.4 [facility] [address] [place] [id number] [place] [address] 06742- 7728 May, Missed period N92.6 ; Dysuria R30.0 and Acute cystitis without hematuria N30.00 [facility] [address] [place] [id number] [place] [address]2937- [address]111 Nov, [facility] [address] [address]- [address] Nov, Absence of menstruation 626.0 [facility] [address] [place] [id number] [place] [address]40- 7930 September, Generalized headaches 784.0 [facility] [address] [place] [id number] [place] [address]3285- 4779 Aug, [facility] [address] [place] [id number] [place] [address]- 7415 Aug, [facility] [address] [place] [id number] [place] [address] 82492- [address]40 September, [facility] [address] [place] [id number] [place] [address] 15243- 5337 September, [facility] [address] [place] [id number] [place] [address] 72433- 3101 September, [facility] [address] [place] [id number] [place] [address] 7[address]15- 1281 September, [facility] [address] [place] [id number] [place] [address] 64099- 8418 Jun, [facility] [address] [place] [id number] [place] [address] 86[address]- 9828 Jun, [facility] [place] [facility] [address] [id number] [place] [address]- [address]255 Jun, [facility] [place] [facility] [address] [id number] [place] [address]- 1046 Jun, [facility] [place] [facility] [address] [id number] [place] [address]- 6950 Jun, [facility] [place] [facility] [address] [id number] [place] [address]- 5615 May, [facility] [place] [facility] [address] [id number] [place] [address]- 6457 May, [facility] [place] [facility] [address] [id number] [place] [address]- 4238 May, [facility] [place] [facility] [address] [id number] [place] [address]- 6330 May, [facility] [place] [facility] [address] [id number] [place] [address]- 6817 May, [facility] [place] [facility] [address] [id number] [place] [address]- 6742 Feb, [facility] [place] [facility] [address] [id number] [place] [address]- 2086 Feb, [facility] [place] [facility] [address] [id number] [place] [address]- 1504 Nov, [facility] [place] [facility] [address] [id number] [place] [address]- 2732 Nov, [facility] [place] [facility] [address] [id number] [place] [address]- 6988 Oct, [facility] [place] [facility] [address] [id number] [place] [address]- 7162 29 Jul, 2012 [facility] [place] [facility] [address] [id number] [place] [address]- 1217 15 Jul, 2012 [facility] [place] [facility] [address] [id number], [place] [address] Jul, IMMUNIZATIONS No Known Immunizations SOCIAL HISTORY Never Assessed REASON FOR VISIT test (walk-in) PLAN OF CARE VITAL SIGNS MEDICATIONS Unknown Medications RESULTS Name Result Date Reference Range TEST, URINE (IN HOUSE) 2017-07-03 RESULTS POSITIVE Lot # [id number] Control + Exp date 05 December 2018 PROCEDURES Procedure Date Ordered Result Body Site URINE TEST Jul 03, 2017 INSTRUCTIONS MEDICATIONS ADMINISTERED No Known Medications MEDICAL (GENERAL) HISTORY Type Description Date Medical History IBS
--- OUTSIDE RECORDS SUMMARY | 2018-02-25 21:43 | XMS REPORT ---
Author Author TRINH KLEIN Organization [facility] Address [address] [place] [address] Care Team Providers Care Trail Construction Worker Name Role Phone TRINH KLEIN Unavailable PROBLEMS Unknown Problems ALLERGIES Substance Reaction Event Type Date Status N.K.D.A. Unknown Non Drug Allergy Apr, Unknown SOCIAL HISTORY No smoking Hx information available PLAN OF CARE Activity Details Follow Up if not improving with pcp Reason: VITAL SIGNS Height 66 in 2016-04-28 Weight 258.6 lbs 2016-04-28 Temperature 99.3 degrees Fahrenheit 2016-04-28 Heart Rate 74 bpm 2016-04-28 Respiratory Rate 20 2016-04-28 BMI 41.73 kg/m2 2016-04-28 Blood pressure systolic 123 mmHg 2016-04-28 Blood pressure diastolic 84 mmHg 2016-04-28 MEDICATIONS Medication Instructions Dosage Frequency Start Date End Date Duration Status Amoxicillin 500 MG Orally 3 times a day 1 capsule 8h Apr, May, 10 day(s) Active RESULTS Name Result Date Reference Range STREP A (IN HOUSE) 2016-04-28 STREP A Positive Control + Lot # [id number] Exp date PROCEDURES Procedure Date Ordered Related Diagnosis Body Site STREP A ASSAY W/OPTIC Apr 28, 2016 Office Visit, Est Pt., Level 3 Apr 28, 2016 IMMUNIZATIONS No Known Immunizations
[2018-02-25] MEDS ORDERED: AMPICILLIN 2,000 MG/20 ML (IV USE) ONE (21:55)
[2018-02-25] MEDS ORDERED: NS (IVPB) 50 ML ONE (21:55)
[2018-02-25] MEDS ORDERED: AMPICILLIN FOR IV USE 2,000 MG in NS (IVPB) 50 ML IV ONE (22:00)
[2018-02-25] MEDS: D5 LR IV SOLUTION 1,000 ML IV SCH (22:06)
[2018-02-25] MEDS ORDERED: MINERAL OIL CONCENTRATE 99.9% 15 ML UDC TOP PRN (22:15)
[2018-02-25 22:18] LABS: BASOPHILS % (AUTO) 0 % (0-10); EOSINOPHILS # (AUTO) 0.1 10^3/uL (0.0-0.3); EOSINOPHILS % (AUTO) 1 % (0-10); HEMATOCRIT 36 % (35-52); LYMPHOCYTES # (AUTO) 1.9 X 10^3 (1.0-4.0); LYMPHOCYTES % (AUTO) 17 % (12-44); MEAN CORPUSCULAR HEMOGLOBIN 28 PG (25-34); MEAN CORPUSCULAR HGB CONC 33 G/DL (32-36); MEAN CORPUSCULAR VOLUME 83 FL (80-99); MEAN PLATELET VOLUME 11.9 FL (7.4-10.4); MONOCYTES # (AUTO) 0.9 X 10^3 (0.0-1.0); MONOCYTES % (AUTO) 8 % (0-12); NEUTROPHILS # (AUTO) 8.6 X 10^3 (1.8-7.8); NEUTROPHILS % (AUTO) 75 % (42-75); PLATELET COUNT 270 10^3/uL (130-400); RED BLOOD COUNT 4.35 10^6/uL (4.35-5.85); RED CELL DISTRIBUTION WIDTH 14.5 % (10.0-14.5); WHITE BLOOD COUNT 11.4 10^3/uL (4.3-11.0)
[2018-02-25] MEDS ORDERED: PNV1TABL81 PO (22:45)
[2018-02-26] VITALS (109 sets, daily range): BP systolic 89–159; BP diastolic 50–97
[2018-02-26] MEDS ORDERED: LACTATED RINGERS 1,000 ML IV ONE ×3 (00:35→01:17)
[2018-02-26] MEDS ORDERED: SUFENTA 0.6MCG/ML BUPIVA 0.125 100 ML ONE (00:58)
[2018-02-26] MEDS ORDERED: fentaNYL INJECTION 100 MCG/2 ML AMP ONE ×2 (01:01→22:07)
[2018-02-26] MEDS ORDERED: BUPIVACAINE 0.25% 30 ML (SENSORCAINE) VIAL ONE ×2 (01:01→18:45)
[2018-02-26] MEDS: EPIDURAL (SUFENTA 0.6MCG/ML BUPIVA 0.125%) 100 ML BAG EPI PRN ×3 (01:15→15:39)
[2018-02-26] MEDS ORDERED: NALOXONE 0.4 MG/ML 1 ML (NARCAN) VIAL IV PRN ×3 (01:30→23:45)
[2018-02-26] MEDS ORDERED: METOCLOPRAMIDE INJ 10 MG/2 ML (REGLAN) IV PRN ×2 (01:30→23:45)
[2018-02-26] MEDS ORDERED: ONDANSETRON 4 MG/2 ML (SDV) Z0FRAN IV PRN ×2 (01:30→23:45)
[2018-02-26] MEDS: AMPICILLIN FOR IV USE 1,000 MG in NS (IVPB) 50 ML IV SCH ×5 (02:03→18:40)
[2018-02-26] MEDS ORDERED: CATHETER FLUSH 10 ML SYR IV SCH (06:00)
[2018-02-26] MEDS: D5 LR IV SOLUTION 1,000 ML IV SCH ×2 (07:29→15:39)
--- NOTE | 2018-02-26 15:03 | Progress Note-Standard ---
Standard Progress Note Progress Notes/Assess & Plan Date Seen by a Provider: Feb 26, 2018 Time Seen by a Provider: 12:30 Final Diagnosis at bedside to consult with pt regarding epidural at request of OB SARABJIT SMITH CRNA Feb 26, 2018 15:03
[2018-02-26] MEDS ORDERED: FAMOTIDINE 20MG/2ML IV (PEPCID) ONE (21:20)
[2018-02-26] MEDS ORDERED: CITRIC ACID/SOB CIT (BICITRA) 30 ML UDC ONE (21:20)
[2018-02-26] MEDS ORDERED: METOCLOPRAMIDE INJ 10 MG/2 ML (REGLAN) ONE (21:20)
--- NOTE | 2018-02-26 21:35 | History & Physical-OB ---
OB - Chief Complaint & HPI Date/Time Date of Admission: Date of Admission: Feb 25, 2018 at 21:34 Date seen by a Provider: Feb 26, 2018 Time Seen by a Provider: 18:30 Chief Complaint/History OB-Reason for Admission/Chief: Rupture of Membranes Hx : 1 Expected Date of Delivery: Mar 06, 2018 Gestational Age in Weeks: 38 Gestational Age in Days: 5 History of Labs A+, Ab neg Rub Imm GC/Chyl neg HIV/HepB/RPR NR 1hr GTT Normal GBS neg Allergies and Home Medications Allergies Coded Allergies: No Known Drug Allergies (Unverified , 02/25/18) Patient Home Medication List Home Medication List Reviewed: Yes OB - History Hx of Present Care: Yes Ultrasounds: Normal mid trimester US Medical Complications: Other (Obesity) Delivery History Adverse Rxn to Tranfusion: No Patient Past Medical History Obesity Social History/Family History HIV/AIDS: No Recent Infectious Disease Expo: No Sexually Transmitted Disease: No Alcohol Use: Denies Use Recreational Drug Use: No Immunizations Hepatitis A: Yes Hepatitis B: Yes Tetanus Booster (TDap): Less than 5yrs Date of Influenza Vaccine: Feb 08, 2018 Rubella: immune RPR/VDRL: Negative GBS Status: Negative HBsAG: Negative OB - Admission Exam Physical Exam Vitals: Vital Signs 02/26/18 02/26/18 18:30 18:45 Temp 98.2 Pulse 107 Resp 18 B/P (MAP) 136/96 (109) Pulse Ox 99 O2 Delivery Room Air HEENT: NCAT Lungs: Clear Abdomen: Gravid Cervical Dilatation: 9cm Effacement: 100% Station: 0 Membranes: Ruptured Amniotic Fluid: Clear Heart Rate: 150's Accelerations: Accelerations Present Decelerations: Early Decelerations Short Term Variability: Present Contractions on Admission: < 5 Minutes Apart Labs Laboratory Tests Test 02/25/18 21:50 Range/Units White Blood Count 11.4 H 4.3-11.0 10^3/uL Red Blood Count 4.35 4.35-5.85 10^6/uL Hemoglobin 12.0 11.5-16.0 G/DL Hematocrit 36 35-52 % Mean Corpuscular Volume 83 80-99 FL Mean Corpuscular Hemoglobin 28 25-34 PG Mean Corpuscular Hemoglobin Concent 33 32-36 G/DL Red Cell Distribution Width 14.5 10.0-14.5 % Platelet Count 270 130-400 10^3/uL Mean Platelet Volume 11.9 H 7.4-10.4 FL Neutrophils (%) (Auto) 75 42-75 % Lymphocytes (%) (Auto) 17 12-44 % Monocytes (%) (Auto) 8 0-12 % Eosinophils (%) (Auto) 1 0-10 % Basophils (%) (Auto) 0 0-10 % Neutrophils # (Auto) 8.6 H 1.8-7.8 X 10^3 Lymphocytes # (Auto) 1.9 1.0-4.0 X 10^3 Monocytes # (Auto) 0.9 0.0-1.0 X 10^3 Eosinophils # (Auto) 0.1 0.0-0.3 10^3/uL Basophils # (Auto) 0.0 0.0-0.1 10^3/uL OB - Assessment/Plan/Diagnosis Assessment Assessment: active labor Admission Dx SROM Admission Status: Inpatient Order (span 2 midnights) Reason for Inpatient Admission: SROM @ term Plan Plan: Expectant Management Other Plan 1904: Started pushing with Thomas 2119: Patient tiring and minimal progress, called and spoke with Mohini Ortiz/ section team called due to failure to descend Copy Copies To 1: CHELSEA YODER MD, HOLLY R MD Feb 26, 2018 21:35
[2018-02-26] MEDS ORDERED: OXYTOCIN/NORMAL SALINE 0 ML IV ONE (21:43)
[2018-02-26] MEDS ORDERED: ONDANSETRON 4 MG/2 ML (SDV) Z0FRAN IVP PRN ×2 (22:00→23:45)
[2018-02-26] MEDS ORDERED: HYDROmorphone 2 MG/ML VIAL (DILAUDID) IV PRN (22:00)
[2018-02-26] MEDS ORDERED: MEASLES,MUMPS,RUBELLA 1 EA INJ SC SCH (22:00)
[2018-02-26] MEDS ORDERED: TETANUS,DIPTH,PERTUSS P/F (BOOSTRIX) 0.5 ML VIAL IM SCH (22:00)
[2018-02-26] MEDS ORDERED: OXYTOCIN/NORMAL SALINE 500 ML IV SCH (22:00)
--- NOTE | 2018-02-26 22:03 | Discharge Inst-Women's Service ---
Discharge Inst-Women's Serv Depart Medication/Instructions New, Converted or Re-Newed RX: RX on Chart Consults/Follow Up Additional Follow Up: Yes Orders/Referrals Dr. Hernandez in 7-10 days, Dr. Guzman in 6 weeks Activity Activity: Activity as Tolerated Driving Instructions: No Driving for 1 Week NO SMOKING: NO SMOKING Nothing Inside Vagina: No Douching, No [place], No Tampons Diet Discharge Diet: No Restrictions Symptoms to Report to : Bleeding Excessive, Pain Increased, Fever Over 101 Degrees F, Vaginal Bleeding Increase, Questions/Concerns For Any Problems or Questions: Contact Your Physician Skin/Wound Care Infection Signs and Symptoms: Increased Redness, Foul Odor of Wound, Increased Drainage, Skin Itchy or Has a Rash, Increased Swelling, Temperature Above 101 F Operative Area Clean and Dry: Keep Incision Clean/Dry Stitches/[place]/Dermabond: Dermabond, Care of Stitches Bathing Instructions: HAN Tierney DO Feb 26, 2018 10:03 pm
[2018-02-26] MEDS ORDERED: DOCU100C37 PO (22:05)
[2018-02-26] MEDS ORDERED: ACHD5005 PO (22:05)
[2018-02-26] MEDS ORDERED: IBUP-844 PO (22:05)
[2018-02-26] MEDS ORDERED: BUPIVACAINE SPINAL 0.75% (SENSORCAINE) 2 ML AMP ONE (22:07)
[2018-02-26] MEDS ORDERED: ceFAZolin 2 GM IV Premixed 50 ML IV ONE (22:15)
[2018-02-26] MEDS ORDERED: LIDOCAINE PF 2% 5 ML (XYLOCAINE) VIAL ONE (22:18)
[2018-02-26] MEDS ORDERED: MIDAZOLAM 2 MG/2 ML (VERSED) VIAL ONE ×2 (22:32→22:57)
[2018-02-26] MEDS ORDERED: KETAMINE HCL 100 MG/ML 5 ML VIAL ONE (22:34)
[2018-02-26] MEDS ORDERED: METOCLOPRAMIDE INJ 10 MG/2 ML (REGLAN) IV ONE (22:45)
[2018-02-26] MEDS ORDERED: CATHETER FLUSH 10 ML SYR IV PRN (22:45)
[2018-02-26] MEDS ORDERED: FAMOTIDINE 20MG/2ML IV (PEPCID) IV ONE (22:45)
[2018-02-26] MEDS ORDERED: CITRIC ACID/SOB CIT (BICITRA) 30 ML UDC PO ONE (22:45)
[2018-02-26] MEDS: KETOROLAC 30 MG/ML VIAL IVP SCH (23:25)
[2018-02-26] MEDS ORDERED: morphine INJ 10 MG/ML 1ML (SYR OR VIAL) IVP ONE (23:45)
[2018-02-26] MEDS ORDERED: PROMETHAZINE INJ 25 MG/ML (PHENERGAN) AMP IVP ONE (23:45)
[2018-02-26] MEDS ORDERED: diphenhydrAMINE 50 MG/ML INJ (BENADRYL) IV PRN (23:45)
[2018-02-26] MEDS ORDERED: MEPERIDINE (DEMEROL) INJ 50 MG/ML IVP ONE (23:45)
[2018-02-27] VITALS (7 sets, daily range): BP systolic 110–117; BP diastolic 68–79
[2018-02-27] MEDS: HYDROcodone/APAP 5 MG/325 MG (LORTAB) TAB PO PRN ×5 (02:56→20:26)
[2018-02-27 04:43] LABS: BASOPHILS % (AUTO) 0 % (0-10); EOSINOPHILS % (AUTO) 0 % (0-10); HEMATOCRIT 31 % (35-52); LYMPHOCYTES # (AUTO) 0.9 X 10^3 (1.0-4.0); LYMPHOCYTES % (AUTO) 6 % (12-44); MEAN CORPUSCULAR HEMOGLOBIN 27 PG (25-34); MEAN CORPUSCULAR HGB CONC 33 G/DL (32-36); MEAN CORPUSCULAR VOLUME 83 FL (80-99); MEAN PLATELET VOLUME 11.9 FL (7.4-10.4); MONOCYTES # (AUTO) 0.8 X 10^3 (0.0-1.0); MONOCYTES % (AUTO) 6 % (0-12); NEUTROPHILS # (AUTO) 11.8 X 10^3 (1.8-7.8); NEUTROPHILS % (AUTO) 87 % (42-75); PLATELET COUNT 195 10^3/uL (130-400); RED BLOOD COUNT 3.68 10^6/uL (4.35-5.85); RED CELL DISTRIBUTION WIDTH 13.9 % (10.0-14.5); WHITE BLOOD COUNT 13.5 10^3/uL (4.3-11.0)
[2018-02-27] MEDS: KETOROLAC 30 MG/ML VIAL IVP SCH (05:58)
[2018-02-27] MEDS: DOCUSATE SODIUM 100 MG (COLACE) CAP PO SCH ×2 (08:21→20:26)
--- NOTE | 2018-02-27 08:40 | OPERATIVE REPORT ---
DATE OF SERVICE: PREOPERATIVE DIAGNOSES: 1. A 27-year-old G1, P0, at 38 weeks and 6 days' gestation. 2. Cephalopelvic disproportion. POSTOPERATIVE DIAGNOSES: 1. A 27-year-old G1, P0, at 38 weeks and 6 days' gestation. 2. Cephalopelvic disproportion. PROCEDURE: Primary low transverse section. SURGEON: Oscar Chacko DO ANESTHESIA: Spinal. ESTIMATED BLOOD LOSS: 900 mL. URINE OUTPUT: 125 mL clear at the end of the procedure. FLUIDS: 1500 mL of lactated Ringer's solution. FINDINGS: A live female infant, weighing 9 pounds 5 ounces, Apgars of 8 and 9. Grossly normal appearing uterus, bilateral fallopian tubes and ovaries. SPECIMENS SENT: None. INDICATIONS FOR PROCEDURE: This 27-year-old female was admitted by the [facility] for active labor and spontaneous rupture of membranes. She was augmented throughout the day yesterday morning as well as throughout the day today. She progressed to complete and 0 station and was encouraged to push. After 2-1/2 hours of pushing, there was no progression in station as well as a large caput developed. Due to suspicion for cephalopelvic disproportion, I was consulted for delivery. I discussed with the patient the findings on examination. Risks of the procedure were discussed with the patient in detail including risks of bleeding, infection, damage to surrounding structures including, but not limited to bowel, bladder, ureter, kidneys. We had all of the patient's questions answered. After consent was obtained, the patient was taken to the operating room. OPERATIVE REPORT IN DETAIL: Once in the operating room, spinal anesthesia was found to be adequate, placed in supine position with leftward tilt, prepped and draped in normal sterile fashion. A Pfannenstiel skin incision was made with a knife and carried down to the underlying fascia using Bovie cautery. Fascial incision extended laterally using Bovie cautery. Superior aspect of fascial incision was then grasped with Colby clamps, tented up and dissected off the underlying rectus muscle. The inferior aspect of fascial incision was then grasped with Colby clamps, tented up and dissected off the underlying rectus muscles. The rectus muscles were dissected down the midline, which exposed the peritoneum, which entered bluntly and extended using blunt traction. Finn ring retractor was placed in the peritoneal incision, which offers excellent lateral sidewall retraction. I then proceed identifying the lower uterine segment, which was found to be thinned out to make a low transverse incision to the vesicouterine peritoneum and bluntly dissected off the lower uterine segment. I proceeded with my myotomy until membranes were visualized, at which point I extended uterine incision laterally and superiorly using bandage scissors. Clear fluid was still noted at that time. The infant was found in the vertex presentation, right occiput transverse. It was low in the pelvis. I have to elevate the infant's head up to the incision. With gentle fundal pressure, the infant's head was delivered through the incision. Anterior and posterior shoulders delivered. was then brought to the operative field. The cord was doubly clamped and cut and infant was handed off to Dr. Guzman, who was present for delivery. Cord blood was collected. Three-vessel cord with intact placenta was delivered spontaneously thereafter. IV Pitocin was initiated to facilitate uterine contraction. Uterine fundus became firmer with bimanual massage. The uterus was then exteriorized and cleared of all endometrial clots and debris. There is an extension on the right apex of the incision down to the cervix. It is first repaired using 0 Vicryl suture in a running locked fashion. The entire uterine incision was then closed using 0 Vicryl in a running locked fashion. Second layer of imbricating 0 Monocryl was placed. Excellent hemostasis was noted after doing this. I then placed the uterus back in the pelvis and copiously irrigated the pelvis using normal saline. Once again, there was no bleeding noted from any of my dissection planes. I have placed Interceed antiadhesive over my low____ transverse incision and removed the Finn ring retractor. At that point, I proceeded with closing the peritoneum using 3-0 Vicryl suture in running fashion. The rectus muscle reapproximated using 3-0 Vicryl suture in running fashion. The fascia was reapproximated using 0 Vicryl suture in running fashion. Subcutaneous tissue was reapproximated using 3-0 plain interrupted subcutaneous stitch and skin reapproximated using 4-0 Monocryl running subcuticular. Dermabond was applied to the incision. A sterile dressing with adhesive white tape. The patient tolerated the procedure well and was taken to the recovery in stable condition. Lap and sponge counts were correct at the end of the procedure. Instrument counts were correct as well. Two grams of Ancef given preoperatively for infection prophylaxis. Job ID: [id number] DocumentID: [id number] Dictated Date: 02/26/2018 23:07:04 Design Engineering Manager Date: 02/27/2018 05:46:22 Dictated By: OSCAR CHACKO DO
[2018-02-27] MEDS: IBUPROFEN 600 MG (MOTRIN) TAB PO SCH ×3 (12:19→23:56)
--- NOTE | 2018-02-27 14:40 | Anesthesia-Regional Post-Op ---
Regional Patient Condition Mental Status: Alert, Oriented x3 Circulation: Same as Pre-Op Headache: Absent Sensation: Full Recovery Motor Block: Absent Post Op Complications Complications None Follow Up Care/Instructions Patient Instructions None needed. Anesthesia/Patient Condition Patient is doing well, no complaints, stable vital signs, no apparent adverse anesthesia problems. No complications reported per nursing. KIARRA RODRIGUEZ CRNA Feb 27, 2018 14:40
[2018-02-27] MEDS: CATHETER FLUSH 10 ML SYR IV SCH ×2 (15:15→20:20)
[2018-02-27] MEDS: D5 LR IV SOLUTION 1,000 ML IV SCH (15:15)
[2018-02-27] MEDS ORDERED: FLU QUADRIvalent (5+ YOA) 2018-2019 (AFLURIA) 0.5 ML IM ONE (16:45)
[2018-02-28] MEDS: HYDROcodone/APAP 5 MG/325 MG (LORTAB) TAB PO PRN (05:23)
[2018-02-28 05:59] VITALS: BP 115/71
[2018-02-28] MEDS: IBUPROFEN 600 MG (MOTRIN) TAB PO SCH ×2 (05:59→11:56)
[2018-02-28 08:00] VITALS: BP 104/72
[2018-02-28] MEDS: DOCUSATE SODIUM 100 MG (COLACE) CAP PO SCH (08:23)
[2018-02-28 12:00] VITALS: BP 120/73
[2018-02-28 12:25] VITALS: BP 120/73
--- NOTE | 2018-02-28 12:34 | Postpartum Progress Note ---
Note Note Day # 2 Subjective: Patient is without complaints. Ambulating, voiding. Tolerating a regular diet without nausea or vomiting. Normal lochia. Pain is well controlled with oral pain medications. Objective: Vital Sign - Last 24 Hours 02/27/18 02/27/18 02/27/18 02/28/18 16:00 20:00 23:56 05:59 Temp 98.4 98.0 98.0 98.4 Pulse 108 106 92 114 Resp 18 18 18 18 B/P (MAP) 112/78 (89) 117/79 (92) 111/72 (85) 115/71 (86) Pulse Ox 97 98 98 98 O2 Delivery Room Air Room Air Room Air Room Air 02/28/18 08:00 Temp 96.9 Pulse 102 Resp 16 B/P (MAP) 104/72 (83) Pulse Ox 98 O2 Delivery Room Air Intake and Output 02/27/18 02/27/18 02/28/18 15:00 23:00 07:00 Intake Total 1100 ml 600 ml Output Total 100 ml 1100 ml Balance -100 ml 1100 ml -500 ml Physical Exam: General - Alert and oriented, no apparent distress Abdomen - Soft, appropriately tender to palpation, non-distended, fundus firm at umbilicus Extremities - no edema, negative Kimberly's bilaterally Incision- c/d/i Assessment: POD 2 PLTCS Acute blood loss anemia BMI 47 Plan: Routine care. Encourage breast feeding. Encourage ambulation. Ferrous sulfate supplementation. Plan for discharge today Vitals - Labs Vital Signs - I&O Vital Signs Date Time Temp Pulse Resp B/P (MAP) Pulse Ox O2 Delivery O2 Flow Rate FiO2 02/28/18 08:00 96.9 102 16 104/72 (83) 98 Room Air 02/28/18 05:59 98.4 114 18 115/71 (86) 98 Room Air 02/27/18 23:56 98.0 92 18 111/72 (85) 98 Room Air 02/27/18 20:00 98.0 106 18 117/79 (92) 98 Room Air 02/27/18 16:00 98.4 108 18 112/78 (89) 97 Room Air I & O 02/28/18 07:00 Intake Total 1700 ml Output Total 1200 ml Balance 500 ml HAN CHACKO DO Feb 28, 2018 12:34 pm
--- NOTE | 2018-03-06 22:58 | DISCHARGE SUMMARY ---
DATE OF SERVICE: ADMISSION DIAGNOSES: 1. A 27-year-old G1, P0 at 38 weeks gestation. 2. Spontaneous rupture of membranes. DISCHARGE DIAGNOSES: 1. A 27-year-old G1, P0 at 38 weeks gestation. 2. Spontaneous rupture of membranes. 3. Postop day #2 primary low transverse section. ADMITTING PHYSICIAN: Dr. Eloina Guzman with consultation and coverage by Han Chacko DO. SERVICES: [facility]. HOSPITAL COURSE: Please see admission H and P from 02/26/2018 for complete details pertaining to the patient's admission presentation and plan of care. She arrived in spontaneous labor and her labor ended up being augmented with Pitocin. She ended up having a on 02/27/2018 due to cephalopelvic disproportion and failure to descend. Please see operative report from 02/27/2018 for complete details pertaining to the patient, operative procedure and indications in detail. On postop day #1, the patient was doing well, ambulating and voiding freely. Her incision was clean, dry and intact. Vital signs were found to be stable. There was a drop in her hemoglobin from 12 to 10 given the diagnosis of acute blood loss anemia. She was encouraged to ambulate. She was tolerating a regular diet. On postop day #2, she continued to do well. Her pain was well controlled. Vital signs remained stable. Urine output was adequate. Incision remained clean, dry and intact. Due to the patient's clinical stability on postop day #2, decision was made to discharge the patient home. She was sent home on the following medications including Piggott 5/325 one to two p.o. q.4-6 hours p.r.n. as needed for pain, #50, Motrin 600 mg 1 p.o. q. 6 hours p.r.n. as needed for pain, #80, Colace 100 mg 1 p.o. b.i.d. p.r.n. as needed for constipation, #40 and she was told to continue her vitamin. Routine post- and postoperative precautions were given to the patient. All of her questions were answered prior to discharge. All of the patient's questions were answered pertaining to medication administration prior to discharge as well. The patient's discharge was facilitated at that point without further difficulties. Job ID: [id number] DocumentID: [id number] Dictated Date: 03/06/2018 08:30:35 Blow Torch Burner Date: 03/06/2018 22:58:02 Dictated By: HAN CHACKO DO
== END 2018-02-28 12:25 | disposition home or self-care (01) | DRG 787 ==
LOC: WSo 21:03 → LDRP 21:05 → WSo 21:33 → LDRP 21:34
PROVIDERS: ADMIT Family Medicine; ATTEND Family Medicine
PROC: 10D00Z1 Extraction of Products of Conception, Low, Open Approach (ICD-10-PCS; principal; 2018-02-26 22:13)
DX: O99.213 Obesity complicating pregnancy, third trimester (principal); E66.01 Morbid (severe) obesity due to excess calories; O90.81 Anemia of the puerperium; D62 Acute posthemorrhagic anemia; O33.9 Maternal care for disproportion, unspecified; Z3A.38 38 weeks gestation of pregnancy; Z37.0 Single live birth
CPT/HCPCS: 36415; 85025; 86850; 86900; 86901; 88307; 94664; 99212

== ENCOUNTER 2021-03-08 00:25 | Emergency (ER) | payer SELFPAY ==
[~2021-03-08 00:25] MED LIST: ACHD5005 PO; DOCU100C37 PO; IBUP-844 PO; PNV1TABL81 PO
--- NOTE | 2021-03-08 00:54 | ED EENT ---
History of Present Illness General Chief Complaint: Ear Problems Stated Complaint: R SIDE OF FACE PAIN,R EAR PAIN Source: patient Exam Limitations: no limitations History of Present Illness Date Seen by Provider: Mar 08, 2021 Time Seen by Provider: 00:41 Initial Comments Patient to the ER by private conveyance from home with chief complaint of earache since 8:00 tonight. She took some Tylenol and ibuprofen 3 tablets and it has not helped with her pain. She has a tooth needing pulled on the right lower mandible. She had wisdom teeth on the left pulled about a month ago. No fevers chills difficulty swallowing or breathing. Allergies and Home Medications Allergies Coded Allergies: No Known Drug Allergies (Unverified , 02/25/18) Patient Home Medication List Home Medication List Reviewed: Yes Docusate Sodium (Docusate Sodium) 100 Mg Capsule, 100 MG PO BID PRN for CONSTIPATION-1ST LINE Prescribed by: HAN HCACKO on 02/26/182204 Hydrocodone Bit/Acetaminophen (Lortab 5 Mg Tablet) 1 Tab Tab, 2 TAB PO Q6H PRN for PAIN-MODERATE Prescribed by: HAN CHACKO on 02/26/182204 Ibuprofen (Ibu) 600 Mg Tablet, 600 MG PO Q6H Prescribed by: HAN CHACKO on 02/26/182204 Pnv No.122/Iron/Folic Acid ( Multi Tablet) 1 Each Tablet, 1 EACH PO, (Reported) Entered as Reported by: JAMI ALCAZAR on 02/25/182244 Review of Systems Review of Systems Constitutional: No chills, No diaphoresis Eyes: Denies Blindness, Denies Blurred Vision Ears: See HPI; Denies Dizziness; Pain Nose: denies clots, denies congestion Mouth: denies clots, denies loose teeth Throat: denies pain, denies swelling Respiratory: No phlegm, No short of breath Cardiovascular: No chest pain, No edema All Other Systems Reviewed Negative Unless Noted: Yes Past Cckwkop-Ojvvdd-Mrnmcn Hx Patient Social History Tobacco Use?: No Use of E-Cig and/or Vaping dev: No Immunizations Up To Date Tetanus Booster (TDap): Less than 5yrs PED Vaccines UTD: Yes Seasonal Allergies Seasonal Allergies: No Past Medical History Surgeries: No Respiratory: No Cardiac: No Neurological: No Sexually Transmitted Disease: No HIV/AIDS: No Genitourinary: No Gastrointestinal: No Musculoskeletal: No Endocrine: No HEENT: No Cancer: No Psychosocial: No Integumentary: No Blood Disorders: No Adverse Reaction/Blood Tranf: No Family Medical History Autism in sibling G8 SISTER Diabetes mellitus 19 FATHER FH: cancer 19 FATHER Physical Exam Vital Signs Vital Signs - First Documented 03/08/21 00:38 Temp 36.6 Pulse 81 Resp 16 B/P (MAP) 151/96 (114) Pulse Ox 97 O2 Delivery Room Air Height, Weight, BMI Height: 5'6.00" Weight: 296lbs. 0.0oz. 134.209764tw; 47.8 BMI Method: General Appearance: WD/WN, no apparent distress Eyes: bilateral eye normal inspection, bilateral eye PERRL, bilateral eye EOMI Ears: bilateral ear auricle normal, bilateral ear canal normal, bilateral ear TM normal Nose: normal inspection; No active bleeding Mouth/Throat: other (Significant cavity on the posterior most right lower mandibular molar. No pointing or fluctuance palpable.) Neck: full range of motion, supple, normal inspection Cardiovascular: normal peripheral pulses, regular rate, rhythm Respiratory: no respiratory distress, no accessory muscle use Neurologic/Psychiatric: alert, normal mood/affect, oriented x 3 Skin: normal color, warm/dry Procedures/Interventions Progress Infraalveolar nerve block right mandible. Site was ascertained by palpation and using a 25-gauge 1-1/2 inch needle we inserted to the site found her landmarks aspirated no blood and injected 1/2 cc of half percent Marcaine without epinephrine and half cc of 1% lidocaine with epinephrine. Patient tolerated procedure well. Progress/Results/Core Measures Results/Orders My Orders Orders - CHARMAINE SHER Ketorolac Injection (Toradol Injection) (03/08/21 01:00) Lidocaine 2% Viscous 15 Ml (Xylocaine Vi (03/08/21 01:00) Medications Given in ED Current Medications Medications Dose Ordered Sig/Lavelle Route Start Time Stop Time Status Last Admin Dose Admin Ketorolac Tromethamine 30 mg ONCE ONCE IM 03/08/21 01:00 03/08/21 01:01 DC 03/08/21 01:11 30 MG Lidocaine HCl 5 ml ONCE ONCE PO 03/08/21 01:00 03/08/21 01:01 DC 03/08/21 01:11 5 ML Vital Signs/I&O 03/08/21 00:38 Temp 36.6 Pulse 81 Resp 16 B/P (MAP) 151/96 (114) Pulse Ox 97 O2 Delivery Room Air Progress Progress Note : Time: 00:53 Progress Note Plan to do an infraalveolar nerve block, viscous lidocaine and Toradol shot 30 mg IM Departure Impression Primary Impression: Dental abscess Disposition: HOME, SELF-CARE Condition: Stable Departure-Patient Inst. Decision time for Depature: 01:24 Referrals: NO,LOCAL PHYSICIAN (PCP/Family) Primary Care Physician Patient Instructions: Tooth Abscess (DC) Add. Discharge Instructions: Amoxicillin 1 capsule 3 times a day for the next 7 to 10 days until symptoms resolve. Drink plenty fluids. Tylenol 1000 mg every 8 hours as necessary for pain. Ibuprofen 800 mg every 8 hours as necessary for pain. Warm moist compresses on the outside of your jaw to relieve pain. Viscous lidocaine applied 5 cc to gauze and placed directly over the tooth in question. Hold this for 30 to 60 minutes without eating or drinking. Apply the viscous lidocaine every 6 hours as necessary for breakthrough pain. Keep your follow-up appointment with the dentist All discharge instructions reviewed with patient and/or family. Voiced understanding. Scripts Amoxicillin (Amoxicillin) 500 Mg Capsule 500 MG PO TID for 10 Days, #30 CAP 0 Refills Prov: CHARMAINE SHER 03/08/21 CHARMAINE SHER Mar 08, 2021 00:53
[2021-03-08] MEDS ORDERED: LIDOCAINE 2% VISCOUS 15 ML UDC PO ONE (01:00)
[2021-03-08] MEDS ORDERED: KETOROLAC 30 MG/ML VIAL IM ONE (01:00)
[2021-03-08] MEDS ORDERED: AMOX500C2 PO (01:26)
[2021-03-08 01:31] VITALS: BP 151/96
== END 2021-03-08 01:31 | disposition home or self-care (01) ==
LOC: EDUNIT# 00:25 → ER 00:28
DX: K04.7 Periapical abscess without sinus (principal)
CPT/HCPCS: 99284

== ENCOUNTER 2022-01-06 17:50 | Outpatient (CLI) | payer MEDICAID ==
[~2022-01-06] VITALS: Ht 167.7 cm; Wt 136.7 kg
[~2022-01-06 17:50] MED LIST changes: +AMOX500C2 PO
[2022-01-06 18:16] VITALS: BP 120/81
[2022-01-06 18:20] LABS: BILIRUBIN,URINE NEGATIVE (NEGATIVE); COLOR,URINE YELLOW; GLUCOSE, URINE (UA) NEGATIVE (NEGATIVE); KETONES,URINE NEGATIVE (NEGATIVE); LEUKOCYTE ESTERASE ,URINE 2+ (NEGATIVE); NITRITE,URINE NEGATIVE (NEGATIVE); PH,URINE 6.5 (5-9); PROTEIN,URINE TRACE (NEGATIVE)
[2022-01-06 18:23] LABS: CLARITY,URINE SL CLOUDY
[2022-01-06] MEDS ORDERED: PREN-37 PO (18:23)
[2022-01-06 18:29] VITALS: BP 121/72
[2022-01-06 18:29] LABS: BACTERIA,URINE MODERATE /HPF; RBC,URINE RARE /HPF; WBC,URINE >100 /HPF
[2022-01-06 18:32] VITALS: BP 121/72
[2022-01-06 18:47] VITALS: BP 111/70
[2022-01-06] MEDS ORDERED: CEPH500T PO (18:53)
[2022-01-06] MEDS ORDERED: hydrOXYzine (VISTARIL/ATARAX) 25 MG capsule/tablet PO ONE ×2 (19:00)
[2022-01-06] MEDS ORDERED: CEPHALEXIN 250 MG (KEFLEX) CAP PO NR (19:00)
--- NOTE | 2022-01-07 08:37 | Physician Query-Final Dx ---
ALVERTO,01/07/22 0837: Clinic Account Progress/Dx Physician Query: Please give diagnosis Please include # weeks gestation Date of Service Jan 06, 2022 at 17:50 CHELSEA YODER MD 01/07/22 1101: Clinic Account Progress/Dx DIAGNOSIS: Diagnosis Third trimester 34 week gestation Lower back pain obesity in previous c/s ALVERTO,MayJan 07, 2022 08:37 CHELSEA YODER MD Jan 07, 2022 11:01
== END 2022-01-06 19:15 | disposition home or self-care (01) ==
LOC: LDRP 17:50 → WSo 17:50
PROVIDERS: ATTEND Family Medicine
DX: O26.893 Other specified pregnancy related conditions, third trimester (principal); O99.214 Obesity complicating childbirth; O34.219 Maternal care for unspecified type scar from previous cesarean delivery; M54.50 Low back pain, unspecified; Z3A.34 34 weeks gestation of pregnancy
CPT/HCPCS: 81000; 87088